=== PATIENT | male | born 1985 | race Hispanic/Latino ===

== ENCOUNTER 2016-11-19 06:50 | Emergency (ER) | payer SELFPAY ==
[2016-11-19 08:00] LABS: Anion Gap 19 mmol/L; Blood Urea Nitrogen 12 mg/dL (9-20); Calcium 9.3 mg/dL (8.4-10.2); Carbon Dioxide 26 mmol/L (22-30); Glucose 107 mg/dL (75-100); Potassium 3.7 mmol/L (3.6-5.0); Sodium 142 mmol/L (137-145)
[2016-11-19 08:02] LABS: Urine Drugs of Abuse Note Disclamer
[2016-11-19 08:03] LABS: Basophils % (Auto) 0.2 % (0.0-1.8); Hematocrit 42.1 % (35.5-45.6); Mean Corpuscular HGB Conc 33 % (32-34); Mean Corpuscular Hemoglobin 30 pg (28-32); Mean Corpuscular Volume 90 fl (84-94); Platelet Count 261 K/mm3 (140-440); Red Blood Count 4.68 M/mm3 (3.65-5.03); Red Cell Distribution Width 13.7 % (13.2-15.2); White Blood Count 16.3 K/mm3 (4.5-11.0)
[2016-11-19 08:30] LABS: Bilirubin,Urine NEG (Negative); Blood,Urine SM (Negative); Ketones,Urine NEG (Negative); Leukocyte Esterase,Urine NEG (Negative); Mucus,Urine FEW /HPF; Nitrite,Urine NEG (Negative); Urobilinogen,Urine < 2.0 mg/dL (<2.0)
--- NOTE | 2016-11-19 09:52 | Emergency Department Report ---
Entered by MACEY HARRISON, acting as scribe for ANH ALVARADO NP. Chief Complaint: Dyspnea/Respdistress Stated Complaint: JAMARI Time Seen by Provider: 11/19/16 09:37 - HPI History of Present Illness: Pt is a 31 y.o. male with a hx of persistent cough c/o a 15-18 hour hx of persistent SOB that started when he heard a sound like a gun being cocked while at [employer]. He does not report chest pain. Pt reports that he is a substance abuser, stating that he uses marijuana. - ROS Review of Systems: Positive for SOB Positive for chronic cough Negative for chest pain - Exam Vital Signs: Vital Signs 11/19/16 07:20 Temperature 99.3 F Pulse Rate 138 H Respiratory 20 Rate Blood Pressure 154/99 O2 Sat by Pulse 100 Oximetry Physical Exam: Constitutional: Well-developed, well-nourished. NAD. Pulmonary: Unable to auscultate secondary to rapid, pressured speech Neuro: A&Ox3 Psych: Flight of ideas. Anxious. Rapid, pressured speech MSE screening note: Focused history and physical exam performed. Due to findings the following was ordered: CXR ordered. ED Medical Decision Making - Lab Data Result diagrams: 11/19/16 07:29 11/19/16 07:29 ED Disposition for MSE Condition: Stable Referrals: PRIMARY CARE, [Primary Care Provider] - 3-5 Days This documentation as recorded by the scribe,MACEY HARRISON,accurately reflects the service I personally performed and the decisions made by me,ANH ALVARADO , SECURITY OFFICER.
--- NOTE | 2016-11-19 10:22 | XRay Report ---
CHEST 2 VIEWS INDICATION: Shortness of breath. COMPARISON: None similar at this institution. FINDINGS: PA and lateral chest radiographs demonstrate approximately 3 cm round infrahilar mass, possibly localizing the right middle lobe. Clear remainder lungs. Normal cardiomediastinal silhouette. Mild thoracic spine degenerative spurring. CONCLUSION: Right lung mass/possible neoplasm, as described. Please also correlate clinically and further with contrasted chest CT, as appropriate. Thank you for the opportunity to participate in this patient's care.
[2016-11-19] MEDS ORDERED: NACL 0.9% 1000 ML 2,000 ML IV ONE (11:11)
[2016-11-19] MEDS ORDERED: VALIUM IV ONE ×2 (11:11→11:47)
[2016-11-19] MEDS ORDERED: TYLENOL PO ONE (11:12)
--- NOTE | 2016-11-19 11:20 | Emergency Department Report ---
ED General Adult HPI - General Chief complaint: Dyspnea/Respdistress Stated complaint: JAMARI Time Seen by Provider: 11/19/16 09:37 Source: patient, family, EMS (ems notes not available at time of chart dictation), RN notes reviewed Mode of arrival: Ambulatory Limitations: No Limitations - History of Present Illness Initial comments: This is a 31-year-old male. He is previously unknown to me. He has a history of methamphetamine abuse, right lung mass. The patient is accompanied by his , Mrs. Bhavana Miller. She reports that the patient ingested methamphetamine last night. The patient presents to the ER with multiple complaints, including hallucinations, rectal discomfort, and anxiety. He is not homicidal or suicidal. He'll not further clarify the nature of his hallucinations. He does not have access to guns or firearms. He is not homicidal or suicidal. His feels comfortable to take care of him at home. The patient is currently methamphetamine intoxicated, and is unable to describe exacerbating or relieving factors. Severity scale (0 -10): 0 Improves with: none Worsens with: none Associated Symptoms: confusion, diaphoresis, loss of appetite, weakness. denies : chest pain - Related Data Allergies Allergy/AdvReac Type Severity Reaction Status Date / Time No Known Allergies Allergy Unverified 11/19/16 06:55 ED Review of Systems ROS: Stated complaint: JAMARI Other details as noted in HPI Constitutional: denies: fever Eyes: denies: eye discharge ENT: denies: hearing loss Respiratory: shortness of breath Cardiovascular: denies: chest pain Gastrointestinal: abdominal pain Genitourinary: denies: dysuria Musculoskeletal: arthralgia, myalgia Skin: denies: lesions Neurological: denies: weakness Psychiatric: anxiety, auditory hallucinations. denies: homicidal thoughts, suicidal thoughts ED Past Medical Hx - Past Medical History Previous Medical History?: Yes Hx Psychiatric Treatment: Yes (ADHD) - Surgical History Past Surgical History?: Yes Additional Surgical History: Right Lung biopsy - Social History Smoking Status: Current Every Day Smoker Substance Use Type: Alcohol, Marijuana, Non Opiate Pain ED Physical Exam - General Limitations: Other (methamphetamine intoxication) General appearance: alert, in no apparent distress - Head Head exam: Present: atraumatic, normocephalic - Eye Eye exam: Present: normal appearance, EOMI - ENT ENT exam: Present: normal exam, normal orophraynx, mucous membranes moist, normal external ear exam - Neck Neck exam: Present: normal inspection, full ROM - Respiratory Respiratory exam: Present: normal lung sounds bilaterally. Absent: respiratory distress, wheezes, rales, rhonchi, stridor, chest wall tenderness - Cardiovascular Cardiovascular Exam: Present: normal rhythm, tachycardia, normal heart sounds. Absent: systolic murmur, diastolic murmur, rubs, gallop - GI/Abdominal GI/Abdominal exam: Present: soft, normal bowel sounds. Absent: distended, tenderness, guarding, rebound, rigid, pulsatile mass - Rectal Rectal exam: Present: normal inspection (escorted by ALVARO wong), other ( patient declines rectal examination) - Extremities Exam Extremities exam: Present: normal inspection, full ROM, normal capillary refill. Absent: pedal edema, joint swelling, calf tenderness - Back Exam Back exam: Present: normal inspection - Neurological Exam Neurological exam: Present: alert, oriented X3, normal gait, other (Extraocular movements intact. Tongue midline. No facial droop. Facial sensation intact to light touch in the V1, V2, V3 distribution bilaterally. 5 and 5 strength in 4 extremities.. Sensation is intact to light touch in 4 extremities.). Absent : motor sensory deficit - Psychiatric Psychiatric exam: Present: anxious. Absent: homicidal ideation, suicidal ideation - Skin Skin exam: Present: warm, dry, intact, normal color. Absent: rash ED Course Vital Signs 11/19/16 11/19/16 11/19/16 07:20 11:05 11:38 Temperature 99.3 F 100.2 F H Pulse Rate 138 H 133 H Respiratory 20 20 Rate Blood Pressure 154/99 Blood Pressure 119/98 [Right] O2 Sat by Pulse 100 100 Oximetry 11/19/16 11/19/16 12:03 13:56 Temperature 99 F Pulse Rate 123 H 98 H Respiratory 18 18 Rate Blood Pressure Blood Pressure 126/86 144/88 [Right] O2 Sat by Pulse 100 100 Oximetry - Reevaluation(s) Reevaluation #1: 11/19/16 11:30 differential diagnosis: Methamphetamine toxicity, chronic lung mass, tachycardia, mood disorder Assessment and plan: 31-year-old male with clinical sympathomimetic toxicity. He is tachycardic, however he is pleasant and cooperative, although he is very wandering. He is not homicidal or suicidal, he is somewhat disorganized, but his feels comfortable to care for him. No indication for 1013 as of yet. A nonspecific lesion noted in x-ray the chest, patient did report a history of lesion in the chest, for which he received a biopsy. CT scan of the chest is ordered. IV fluids and benzodiazepines ordered. Rectal temperature is 100.2 degrees, the neck is supple, therefore, I don't think clinical presentation is consistent with meningitis. 11/19/16 11:44 Reevaluation #2: 11/19/16 14:38. Tachycardia resolved. Patient ambulating with steady gait. Patient seen and evaluated by the crisis counselor, Romi Mendoza, who agrees the patient does not meet 1013 criteria, and has given the patient outpatient resources for methamphetamine detox. Patient is instructed to discontinue methamphetamine consumption, and he is counseled to follow up with outpatient primary care doctor or resistor tester for his pulmonary mass. The patient is accompanied by his , who is sober, walks with a steady gait, and is feeling comfortable to care for the patient. Patient now much more lucid, cogent, sober. He did request a prescription for tramadol, and I instructed the patient that he would not be receiving any prescription for controlled medications or substances at this time. 11/19/16 19:21 ED Medical Decision Making - Lab Data Result diagrams: 11/19/16 07:29 11/19/16 07:29 Vital Signs 11/19/16 11/19/16 07:20 11:05 Temperature 99.3 F Pulse Rate 138 H 133 H Respiratory 20 20 Rate Blood Pressure 154/99 Blood Pressure 119/98 [Right] O2 Sat by Pulse 100 100 Oximetry Labs 11/19/16 11/19/16 11/19/16 07:29 07:29 07:56 WBC 16.3 H RBC 4.68 Hgb 14.0 Hct 42.1 MCV 90 MCH 30 MCHC 33 RDW 13.7 Plt Count 261 Lymph % (Auto) 9.5 L [place] % (Auto) 9.4 H Eos % (Auto) 0.0 Baso % (Auto) 0.2 Lymph # 1.5 [place] # 1.5 H Eos # 0.0 Baso # 0.0 Seg Neutrophils % 80.9 H Seg Neutrophils # 13.2 H Sodium 142 Potassium 3.7 Chloride 101.0 Carbon Dioxide 26 Anion Gap 19 BUN 12 Creatinine 0.8 Estimated GFR > 60 BUN/Creatinine Ratio 15.00 Glucose 107 H Calcium 9.3 Urine Color Yellow Urine Turbidity Clear Urine pH 6.0 Ur Specific [place] 1.020 Urine Protein 30 mg/dl Urine Glucose (UA) Neg Urine Ketones Neg Urine Blood Sm Urine Nitrite Neg Urine Bilirubin Neg Urine Urobilinogen < 2.0 Ur Leukocyte Esterase Neg Urine WBC (Auto) 1.0 Urine RBC (Auto) 4.0 Hyaline Casts 1 Urine Mucus Few Urine Opiates Screen Urine Methadone Screen Ur Barbiturates Screen Ur Phencyclidine Scrn Ur Amphetamines Screen U Benzodiazepines Scrn Urine Cocaine Screen U Marijuana (THC) Screen Drugs of Abuse Note 11/19/16 07:56 WBC RBC Hgb Hct MCV MCH MCHC RDW Plt Count Lymph % (Auto) [place] % (Auto) Eos % (Auto) Baso % (Auto) Lymph # [place] # Eos # Baso # Seg Neutrophils % Seg Neutrophils # Sodium Potassium Chloride Carbon Dioxide Anion Gap BUN Creatinine Estimated GFR BUN/Creatinine Ratio Glucose Calcium Urine Color Urine Turbidity Urine pH Ur Specific [place] Urine Protein Urine Glucose (UA) Urine Ketones Urine Blood Urine Nitrite Urine Bilirubin Urine Urobilinogen Ur Leukocyte Esterase Urine WBC (Auto) Urine RBC (Auto) Hyaline Casts Urine Mucus Urine Opiates Screen Presumptive negative Urine Methadone Screen Presumptive negative Ur Barbiturates Screen Presumptive negative Ur Phencyclidine Scrn Presumptive negative Ur Amphetamines Screen Presumptive positive U Benzodiazepines Scrn Presumptive negative Urine Cocaine Screen Presumptive negative U Marijuana (THC) Screen Presumptive positive Drugs of Abuse Note Disclamer - EKG Data -: EKG Interpreted by Ms Rate: tachycardia - EKG Data 11/19/16 11:31 Sinus tachycardia, 127 beats per minute, normal intervals, normal axis, not morphologically consistent with STEMI - Radiology Data Radiology results: report reviewed, image reviewed Two-view x-ray of the chest demonstrates a right lung mass and possible neoplasm. Otherwise, no acute disease CAT scan of the chest demonstrates no pulmonary embolus. Neoplastic mass noted in the right hemithorax. Critical care attestation.: If time is entered above; I have spent that time in minutes in the direct care of this critically ill patient, excluding procedure time. ED Disposition Clinical Impression: Methamphetamine abuse, Lung mass Disposition: DC- TO HOME OR SELFCARE Is pt being admited?: No Does the pt Need Aspirin: No Condition: Stable Instructions: Needle Biopsy of the Lung (ED), Methamphetamine Abuse (ED), Pulmonary Nodules (ED) Additional Instructions: Discontinue consumption of methamphetamine. It is not good for your health. Follow-up with the outpatient resources that were given to you for methamphetamine detox. CT scan of the chest demonstrated a right-sided lung mass, very concerning for cancer/tumor/malignancy. Follow up as soon as possible with any the listed physicians to initiate outpatient care, and for definitive diagnosis. Not following up in a timely fashion may result in an undiagnosed tumor/cancer/malignancy, which in turn can cause , disability, paralysis, loss of quality of life. Return to the ER right away with chest pain, shortness of breath, fevers, chills , confusion, homicidality, suicidality Referrals: PRIMARY CAREMD [Primary Care Provider] - 3-5 Days JOSE MOTT MD [Staff Physician] - 3-5 Days SALAZAR SANABRIA DO [Staff Physician] - 3-5 Days OLLIE STEVENSON MD [Referring] - 3-5 Days TOMMY SHEEHAN MD [Staff Physician] - 3-5 Days [facility] [Outside] - 3-5 Days
[2016-11-19] MEDS ORDERED: NACL ONE (11:34)
[2016-11-19 13:57] VITALS: BP 144/88
--- NOTE | 2016-11-19 14:27 | Cat Scan Report ---
CTA CHEST INDICATION: Shortness of breath, tachycardia. Right lung mass. COMPARISON: CXR from earlier today. FINDINGS: Chest CTA performed following intravenous administration of 100 cc of Omnipaque 350. Rotational MIP's also obtained. Normal heart size. No effusions. No aortic aneurysm, dissection or suspicious pulmonary arterial filling defects. No size significant adenopathy. Normal airway. Unremarkable thyroid. Approximately 2.8 cm solid round mass in the right mid lobe corresponds to CXR appearance. Subtle bibasilar airspace opacities also noted, axial series 3, images 88-128. Nonspecific distal esophageal wall prominence/thickening, not excluded for gastroesophageal reflux and/or hiatal hernia, amongst others. Images through included upper abdomen reveal no significant abnormality. Multilevel mid to lower thoracic spine degenerative changes, including spurring and endplate irregularities/Schmorl's nodes, somewhat advanced for a patient of this age. CONCLUSION: 1. 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 2. No CT evidence of pulmonary embolism with few other incidental findings, as above. Thank you for the opportunity to participate in this patient's care.
== END 2016-11-19 14:59 | disposition home or self-care (01) ==
LOC: ED 06:50
DX: R91.8 Other nonspecific abnormal finding of lung field (principal); F15.10 Other stimulant abuse, uncomplicated; F17.210 Nicotine dependence, cigarettes, uncomplicated; F12.10 Cannabis abuse, uncomplicated
CPT/HCPCS: 36415; 71020; 71275; 80048; 80307; 81001; 82550; 85025; 93005; 93010; 96374; 99285; G0480; J3360; J7030; Q9967; 80320

== ENCOUNTER 2016-11-22 21:42 | Emergency (ER) | payer SELFPAY ==
[2016-11-22 22:21] VITALS: BP 133/91
[2016-11-22 23:18] LABS: Basophils % (Auto) 0.6 % (0.0-1.8); Eosinophils % (Auto) 2.2 % (0.0-4.3); Hematocrit 43.3 % (35.5-45.6); Hemoglobin 14.7 gm/dl (11.8-15.2); Mean Corpuscular HGB Conc 34 % (32-34); Mean Corpuscular Hemoglobin 31 pg (28-32); Mean Corpuscular Volume 90 fl (84-94); Platelet Count 275 K/mm3 (140-440); Red Cell Distribution Width 13.4 % (13.2-15.2); White Blood Count 7.5 K/mm3 (4.5-11.0)
[2016-11-22 23:35] LABS: Anion Gap 18 mmol/L; BUN/Creatinine Ratio 18.88; Blood Urea Nitrogen 17 mg/dL (9-20); Calcium 9.2 mg/dL (8.4-10.2); Carbon Dioxide 25 mmol/L (22-30); Chloride 100.5 mmol/L (98-107); Glucose 91 mg/dL (75-100); Potassium 3.5 mmol/L (3.6-5.0); Sodium 140 mmol/L (137-145)
[2016-11-23 00:03] LABS: Urine Drugs of Abuse Note Disclamer
[2016-11-23 00:23] LABS: Bilirubin,Urine NEG (Negative); Blood,Urine NEG (Negative); Ketones,Urine TR mg/dL (Negative); Leukocyte Esterase,Urine NEG (Negative); Mucus,Urine 3+ /HPF; Nitrite,Urine NEG (Negative); Urobilinogen,Urine < 2.0 mg/dL (<2.0)
--- NOTE | 2016-11-23 18:23 | ED Elopement Review ---
ED Pt Elopement review - Results review Lab results: Laboratory Tests 11/22/16 11/22/16 11/22/16 22:51 22:51 22:51 WBC 7.5 RBC 4.80 Hgb 14.7 Hct 43.3 MCV 90 MCH 31 MCHC 34 RDW 13.4 Plt Count 275 Lymph % (Auto) 25.9 [place] % (Auto) 11.0 H Eos % (Auto) 2.2 Baso % (Auto) 0.6 Lymph # 2.0 [place] # 0.8 Eos # 0.2 Baso # 0.0 Seg Neutrophils % 60.3 Seg Neutrophils # 4.5 Sodium 140 Potassium 3.5 L Chloride 100.5 Carbon Dioxide 25 Anion Gap 18 BUN 17 Creatinine 0.9 Estimated GFR > 60 BUN/Creatinine Ratio 18.88 Glucose 91 Calcium 9.2 Urine Color Urine Turbidity Urine pH Ur Specific [place] Urine Protein Urine Glucose (UA) Urine Ketones Urine Blood Urine Nitrite Urine Bilirubin Urine Urobilinogen Ur Leukocyte Esterase Urine WBC (Auto) Urine RBC (Auto) U Epithel Cells (Auto) Calcium Oxalate Crystal Urine Mucus Urine Opiates Screen Urine Methadone Screen Ur Barbiturates Screen Ur Phencyclidine Scrn Ur Amphetamines Screen U Benzodiazepines Scrn Urine Cocaine Screen U Marijuana (THC) Screen Drugs of Abuse Note Plasma/Serum Alcohol < 0.01 11/22/16 11/22/16 23:30 23:30 WBC RBC Hgb Hct MCV MCH MCHC RDW Plt Count Lymph % (Auto) [place] % (Auto) Eos % (Auto) Baso % (Auto) Lymph # [place] # Eos # Baso # Seg Neutrophils % Seg Neutrophils # Sodium Potassium Chloride Carbon Dioxide Anion Gap BUN Creatinine Estimated GFR BUN/Creatinine Ratio Glucose Calcium Urine Color [place] Urine Turbidity Clear Urine pH 5.0 Ur Specific [place] 1.033 H Urine Protein 30 mg/dl Urine Glucose (UA) Neg Urine Ketones Tr Urine Blood Neg Urine Nitrite Neg Urine Bilirubin Neg Urine Urobilinogen < 2.0 Ur Leukocyte Esterase Neg Urine WBC (Auto) 2.0 Urine RBC (Auto) 7.0 U Epithel Cells (Auto) < 1.0 Calcium Oxalate Crystal 1+ Urine Mucus 3+ Urine Opiates Screen Presumptive negative Urine Methadone Screen Presumptive negative Ur Barbiturates Screen Presumptive negative Ur Phencyclidine Scrn Presumptive negative Ur Amphetamines Screen Presumptive positive U Benzodiazepines Scrn Presumptive positive Urine Cocaine Screen Presumptive negative U Marijuana (THC) Screen Presumptive positive Drugs of Abuse Note Disclamer Plasma/Serum Alcohol - Call Back decision Pt Call Back Decision: Pt to F/U with PMD
== END 2016-11-23 00:45 | disposition left against medical advice (07) ==
LOC: ED 21:42
DX: R05 Cough (principal); Z53.21 Procedure and treatment not carried out due to patient leaving prior to being seen by health care provider
CPT/HCPCS: 36415; 80048; 80307; 81001; 85025; 87116; 87430; G0480; 80320

== ENCOUNTER 2016-12-02 20:57 | Emergency (ER) | payer OTHER ==
--- NOTE | 2016-12-02 21:52 | Emergency Department Report ---
HPI - General Chief Complaint: Psych Time Seen by Provider: 12/02/16 21:40 - HPI HPI: 31-year-old male brought to ED by mother, grandmother stating and is acting strange. Patient has a history of paranoid schizophrenia, methamphetamine abuse , things that he is being framed for murder, and is feeling suicidal. ED Past Medical Hx - Past Medical History Previous Medical History?: Yes Hx Psychiatric Treatment: Yes (ADHD) Additional medical history: nodule on lung - Surgical History Hx Appendectomy: Yes Additional Surgical History: Right Lung biopsy - Family History Family history: hypertension - Social History Smoking Status: Current Every Day Smoker Substance Use Type: Alcohol, Cocaine, Marijuana, Methamphetamines - Medications Home Medications: Home Medications Medication Instructions Recorded Confirmed Last Taken Type No Known Home Medications [No 12/02/16 12/02/16 Unknown History Reported Home Medications] ED Review of Systems ROS: Stated complaint: MED CLEARANCE Other details as noted in HPI Comment: All other systems reviewed and negative Constitutional: no symptoms reported ENT: as per HPI Psychiatric: homicidal thoughts, suicidal thoughts Physical Exam - Physical Exam Vital Signs: Vital Signs 12/02/16 21:13 Pulse Rate 151 H Respiratory 20 Rate Blood Pressure 141/96 O2 Sat by Pulse 99 Oximetry Physical Exam: Gen. alert and oriented 3 in no distress Head atraumatic normocephalic Eyes PERR LA EOMI Chest regular rate and rhythm normal S1-S2 lungs clear bilaterally Abdomen soft nondistended Back no point tenderness paravertebral tenderness Neuro no focal deficit. Psych: Anxious, hallucinations, delusions, suicidal. ED Course Vital Signs 12/02/16 21:13 Pulse Rate 151 H Respiratory 20 Rate Blood Pressure 141/96 O2 Sat by Pulse 99 Oximetry - Reevaluation(s) Reevaluation #1: 12/02/16 21:[address] on a 1013 awaiting psychiatric consultation. ED Medical Decision Making - Lab Data Result diagrams: 12/02/16 21:35 12/02/16 21:35 Critical care attestation.: If time is entered above; I have spent that time in minutes in the direct care of this critically ill patient, excluding procedure time. ED Disposition Clinical Impression: Mood disorder Disposition: DC-01 TO HOME OR SELFCARE Is pt being admited?: No Does the pt Need Aspirin: No Condition: Stable Instructions: Mood Disorders (ED), Methamphetamine Abuse (ED) Additional Instructions: Avoid consumption of methamphetamines. They are not healthy for you. Follow up with a primary care doctor or psychiatrist within the next 2 weeks. Return to the ER right away with fevers, chills, chest pain, shortness of breath, intractable nausea or vomiting, confusion, inability to tolerate liquid feeds. Referrals: [facility] [Outside] - 3-5 Days PRIMARY CARE, [Primary Care Provider] - 3-5 Days LETY WHALEN MD [Staff Physician] - 3-5 Days AMALIA HUYNH MD [Staff Physician] - 3-5 Days
[2016-12-02 21:57] LABS: Basophils % (Auto) 0.2 % (0.0-1.8); Eosinophils % (Auto) 0.3 % (0.0-4.3); Hematocrit 44.8 % (35.5-45.6); Hemoglobin 15.1 gm/dl (11.8-15.2); Mean Corpuscular HGB Conc 34 % (32-34); Mean Corpuscular Hemoglobin 30 pg (28-32); Mean Corpuscular Volume 90 fl (84-94); Platelet Count 294 K/mm3 (140-440); Red Blood Count 4.98 M/mm3 (3.65-5.03); Red Cell Distribution Width 14.2 % (13.2-15.2); White Blood Count 11.3 K/mm3 (4.5-11.0)
[2016-12-02 22:03] LABS: Urine Drugs of Abuse Note Disclamer
[2016-12-02 22:11] LABS: Bilirubin,Urine NEG (Negative); Blood,Urine SM (Negative); Ketones,Urine NEG (Negative); Leukocyte Esterase,Urine NEG (Negative); Mucus,Urine FEW /HPF; Nitrite,Urine NEG (Negative); Protein,Urine <15 mg/dL mg/dL (Negative); Urobilinogen,Urine < 2.0 mg/dL (<2.0)
[2016-12-02 22:22] LABS: Anion Gap 21 mmol/L; BUN/Creatinine Ratio 15.55; Blood Urea Nitrogen 14 mg/dL (9-20); Calcium 9.7 mg/dL (8.4-10.2); Carbon Dioxide 28 mmol/L (22-30); Chloride 97.2 mmol/L (98-107); Glucose 124 mg/dL (75-100); Potassium 4.3 mmol/L (3.6-5.0); Sodium 142 mmol/L (137-145)
[2016-12-02] MEDS ORDERED: NACL 0.9% 1000 ML 1,000 ML IV ONE (23:03)
[2016-12-03] MEDS ORDERED: GEODON IM ONE (00:40)
[2016-12-03] MEDS ORDERED: WATER FOR INJ (PF) 10 ML ONE (01:06)
--- NOTE | 2016-12-03 15:54 | Consultation ---
History of Present Illness - Reason for Consult Consult date: 12/03/16 Reason for consult: Psychiatry Follow-up Requesting physician: CHAVA HERNÁNDEZ - Chief Complaint Chief complaint: "It's the drug I use" - History of Present Psychiatric Illness 31-year-old male brought to ED by mother and grandmother stating and is acting strange. Today patient is calm and cooperative during assessment. He stated that he "gets high" on amphetamines and marijuana frequently. He stated smoking both amphetamines and marijuana prior to coming to [facility]. He stated that he felt paranoid and suicidal on admission. He stated that he experience "weird stuff" when he get high on recreational drugs. He denies a psy hx when asked. He is adamant that he isn't suicidal now and would like to be discharged. He denies SI /HI's, AVH's, and depression. He denies excessive alcohol consumption (etoh). Patient stated that he want help for his recreation drug use. Medications and Allergies Allergies Allergy/AdvReac Type Severity Reaction Status Date / Time No Known Allergies Allergy Unverified 11/19/16 06:55 Home Medications Medication Instructions Recorded Confirmed Last Taken Type No Known Home Medications [No 12/02/16 12/02/16 Unknown History Reported Home Medications] Past psychiatric history - Past Medical History Past Medical History: other (Nodule on right lung) Past Surgical History: Other (Right luing biopsy) - past Psychiatric treatment and history Psych: Psychosis psychiatric treatment history: Denies a psy hx. Denies a fam psy hx. - Social History Social history: other (homeless) Mental Status Exam - Vital signs Last Vital Signs Temp 98.9 F 12/03/16 10:00 Pulse 89 12/03/16 10:00 Resp 18 12/03/16 10:00 BP 126/84 12/03/16 10:00 Pulse Ox 100 12/03/16 10:00 - Exam Narrative exam: ROS: (-) depression MSE: Appearance: calm, cooperative Behavior: regular eye contact Speech: regular rate and tone Mood: "okay" Affect: congruent to mood Thought Process: circumstantial Thought Content: denies SI/HI's and AVH's Motor Activity: ambulatory Cognition: A/Ox 3 Insight: variable Judgment: variable Results Result Diagrams: 12/02/16 21:35 12/02/16 21:35 Abnormal lab results 12/02/16 12/02/16 Range/Units 21:35 21:35 WBC 11.3 H (4.5-11.0) K/mm3 Seg Neutrophils % 79.4 H (40.0-70.0) % Seg Neutrophils # 9.0 H (1.8-7.7) K/mm3 Chloride 97.2 L (98-107) mmol/L Glucose 124 H (75-100) mg/dL All other labs normal. 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 Substance Use DO (amphetamine and cocaine). Today patient is calm and cooperative during assessment. DDx: R/O Bipolar, MDD Recommendation/Plan: Evaluate 1013 and gather collateral information in 24 hours to determine proper dispo. Discussed the importance to abstain from recreational drug use.
--- NOTE | 2016-12-04 08:55 | Progress Note ---
Subjective - Reason for Consult Reason for consult: psych consult - Chief Complaint Chief complaint: 31 year old WM who presented to the ER with chest pain and paranoia secondary to drug use. Currently patient is denying any withdrawal symptoms. He also denies any paranoia. No SI/HI/AH/VH. His mood is fine. He states that he is better secondary to the drugs being out of his system and admits that he gets psychoptic symptoms after using drugs. Currently he feels fine adn is willing to continue treatment on an outpatient basis. 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 Substance Use DO (amphetamine and cocaine). Today patient is calm and cooperative during assessment. Recommendation/Plan: Rescind 1013 given patient seems to be back to his baseline. He is in no acute risk of harm to self or others at this time. He notes that he has friends that can pick him up when discharged. No current withdrawals. We discussed the importance of abstaining from illicit drug use. Patient is willing to go to outpatient drug treatment.
--- NOTE | 2016-12-04 17:41 | Event Note ---
Date: 12/04/16 The patient is seen and examined. He is neither homicidal nor suicidal. The patient is alert and oriented 3. He has a GCS of 15, with an NIH score of 0, and is clinically sober at this time, he is pleasant, calm and cooperative. His 1013 has been discontinued by psychiatry, and he has no complaints at this time. He will be discharged at this time. Vital Signs 12/02/16 12/02/16 12/02/16 21:13 22:12 22:17 Temperature 99.4 F Pulse Rate 151 H 120 H Respiratory 20 22 22 Rate Blood Pressure 141/96 Blood Pressure 161/108 [Left] O2 Sat by Pulse 99 97 97 Oximetry 12/03/16 12/03/16 12/03/16 02:34 10:00 22:03 Temperature 98.9 F 98.6 F Pulse Rate 110 H 89 86 Respiratory 20 18 16 Rate Blood Pressure Blood Pressure 116/82 126/84 132/96 [Left] O2 Sat by Pulse 99 100 99 Oximetry 12/04/16 07:56 Temperature 98.1 F Pulse Rate 103 H Respiratory 16 Rate Blood Pressure Blood Pressure 144/101 [Left] O2 Sat by Pulse Oximetry Lab Results 12/02/16 12/02/16 12/02/16 Range/Units 21:35 21:35 21:35 WBC 11.3 H (4.5-11.0) K/mm3 RBC 4.98 (3.65-5.03) M/mm3 Hgb 15.1 (11.8-15.2) gm/dl Hct 44.8 (35.5-45.6) % MCV 90 (84-94) fl MCH 30 (28-32) pg MCHC 34 (32-34) % RDW 14.2 (13.2-15.2) % Plt Count 294 (140-440) K/mm3 Lymph % (Auto) 14.4 (13.4-35.0) % [place] % (Auto) 5.7 (0.0-7.3) % Eos % (Auto) 0.3 (0.0-4.3) % Baso % (Auto) 0.2 (0.0-1.8) % Lymph # 1.6 (1.2-5.4) K/mm3 [place] # 0.6 (0.0-0.8) K/mm3 Eos # 0.0 (0.0-0.4) K/mm3 Baso # 0.0 (0.0-0.1) K/mm3 Seg Neutrophils % 79.4 H (40.0-70.0) % Seg Neutrophils # 9.0 H (1.8-7.7) K/mm3 Sodium 142 (137-145) mmol/L Potassium 4.3 (3.6-5.0) mmol/L Chloride 97.2 L (98-107) mmol/L Carbon Dioxide 28 (22-30) mmol/L Anion Gap 21 mmol/L BUN 14 (9-20) mg/dL Creatinine 0.9 (0.8-1.5) mg/dL Estimated GFR > 60 ml/min BUN/Creatinine Ratio 15.55 % Glucose 124 H (75-100) mg/dL Lactic Acid (0.7-2.0) mmol/L Calcium 9.7 (8.4-10.2) mg/dL Urine Color (Yellow) Urine Turbidity (Clear) Urine pH (5.0-7.0) Ur Specific [place] (1.003-1.030) Urine Protein (Negative) mg/dL Urine Glucose (UA) (Negative) mg/dL Urine Ketones (Negative) mg/dL Urine Blood (Negative) Urine Nitrite (Negative) Urine Bilirubin (Negative) Urine Urobilinogen (<2.0) mg/dL Ur Leukocyte Esterase (Negative) Urine WBC (Auto) (0.0-6.0) /HPF Urine RBC (Auto) (0.0-6.0) /HPF U Epithel Cells (Auto) (0-13.0) /HPF Urine Mucus /HPF Urine Opiates Screen Urine Methadone Screen Ur Barbiturates Screen Ur Phencyclidine Scrn Ur Amphetamines Screen U Benzodiazepines Scrn Urine Cocaine Screen U Marijuana (THC) Screen Drugs of Abuse Note Plasma/Serum Alcohol 0.01 (0-0.07) gm% 12/02/16 12/02/16 12/03/16 Range/Units 21:57 21:57 10:43 WBC (4.5-11.0) K/mm3 RBC (3.65-5.03) M/mm3 Hgb (11.8-15.2) gm/dl Hct (35.5-45.6) % MCV (84-94) fl MCH (28-32) pg MCHC (32-34) % RDW (13.2-15.2) % Plt Count (140-440) K/mm3 Lymph % (Auto) (13.4-35.0) % [place] % (Auto) (0.0-7.3) % Eos % (Auto) (0.0-4.3) % Baso % (Auto) (0.0-1.8) % Lymph # (1.2-5.4) K/mm3 [place] # (0.0-0.8) K/mm3 Eos # (0.0-0.4) K/mm3 Baso # (0.0-0.1) K/mm3 Seg Neutrophils % (40.0-70.0) % Seg Neutrophils # (1.8-7.7) K/mm3 Sodium (137-145) mmol/L Potassium (3.6-5.0) mmol/L Chloride (98-107) mmol/L Carbon Dioxide (22-30) mmol/L Anion Gap mmol/L BUN (9-20) mg/dL Creatinine (0.8-1.5) mg/dL Estimated GFR ml/min BUN/Creatinine Ratio % Glucose (75-100) mg/dL Lactic Acid 1.60 (0.7-2.0) mmol/L Calcium (8.4-10.2) mg/dL Urine Color Yellow (Yellow) Urine Turbidity Clear (Clear) Urine pH 6.0 (5.0-7.0) Ur Specific [place] 1.020 (1.003-1.030) Urine Protein <15 mg/dl (Negative) mg/dL Urine Glucose (UA) Neg (Negative) mg/dL Urine Ketones Neg (Negative) mg/dL Urine Blood Sm (Negative) Urine Nitrite Neg (Negative) Urine Bilirubin Neg (Negative) Urine Urobilinogen < 2.0 (<2.0) mg/dL Ur Leukocyte Esterase Neg (Negative) Urine WBC (Auto) 1.0 (0.0-6.0) /HPF Urine RBC (Auto) 4.0 (0.0-6.0) /HPF U Epithel Cells (Auto) < 1.0 (0-13.0) /HPF Urine Mucus Few /HPF Urine Opiates Screen Presumptive negative Urine Methadone Screen Presumptive negative Ur Barbiturates Screen Presumptive negative Ur Phencyclidine Scrn Presumptive negative Ur Amphetamines Screen Presumptive positive U Benzodiazepines Scrn Presumptive negative Urine Cocaine Screen Presumptive negative U Marijuana (THC) Screen Presumptive positive Drugs of Abuse Note Disclamer Plasma/Serum Alcohol (0-0.07) gm%
[2016-12-04 18:00] VITALS: BP 119/80
== END 2016-12-04 18:04 | disposition home or self-care (01) ==
LOC: EEVIPCON 20:57 → ED 20:57
DX: F20.9 Schizophrenia, unspecified (principal); F15.10 Other stimulant abuse, uncomplicated; F17.210 Nicotine dependence, cigarettes, uncomplicated; F12.10 Cannabis abuse, uncomplicated; F14.10 Cocaine abuse, uncomplicated
CPT/HCPCS: 36415; 80048; 80307; 81001; 82140; 85025; 96360; 96361; 96372; 99285; G0480; J3486; J7030; 80320

== ENCOUNTER 2017-01-31 02:58 | Emergency (ER) | payer SELFPAY ==
[2017-01-31 03:14] VITALS: BP 163/79
[2017-01-31 03:53] LABS: Basophils % (Auto) 0.2 % (0.0-1.8); Eosinophils % (Auto) 0.2 % (0.0-4.3); Hemoglobin 15.3 gm/dl (11.8-15.2); Mean Corpuscular HGB Conc 35 % (32-34); Mean Corpuscular Hemoglobin 31 pg (28-32); Mean Corpuscular Volume 90 fl (84-94); Platelet Count 263 K/mm3 (140-440); Red Blood Count 4.91 M/mm3 (3.65-5.03); Red Cell Distribution Width 13.2 % (13.2-15.2); White Blood Count 9.3 K/mm3 (4.5-11.0)
[2017-01-31 04:02] LABS: Anion Gap 19 mmol/L; BUN/Creatinine Ratio 10; Blood Urea Nitrogen 10 mg/dL (9-20); Calcium 9.7 mg/dL (8.4-10.2); Carbon Dioxide 28 mmol/L (22-30); Glucose 119 mg/dL (75-100); Potassium 4.3 mmol/L (3.6-5.0); Sodium 145 mmol/L (137-145)
[2017-01-31 04:12] LABS: Urine Drugs of Abuse Note Disclamer
[2017-01-31 04:26] LABS: Bilirubin,Urine NEG (Negative); Blood,Urine SM (Negative); Ketones,Urine NEG (Negative); Leukocyte Esterase,Urine NEG (Negative); Mucus,Urine FEW /HPF; Nitrite,Urine NEG (Negative); Protein,Urine <15 mg/dL mg/dL (Negative); Urobilinogen,Urine < 2.0 mg/dL (<2.0); WBC,Urine < 1.0 /HPF (0.0-6.0)
[2017-01-31] MEDS ORDERED: TYLENOL PO ONE (06:01)
[2017-01-31] MEDS ORDERED: TYLENOL ONE (06:05)
== END 2017-01-31 21:00 | disposition left against medical advice (07) ==
LOC: ED 02:58
DX: R51 Headache (principal); Z53.21 Procedure and treatment not carried out due to patient leaving prior to being seen by health care provider
CPT/HCPCS: 36415; 80048; 80307; 81001; 85025; 93005; 93010; G0480; 80320

== ENCOUNTER 2017-02-07 04:43 | Emergency (ER) | payer SELFPAY ==
[2017-02-07 04:57] VITALS: BP 142/95
[2017-02-07 05:28] LABS: Basophils % (Auto) 0.2 % (0.0-1.8); Hematocrit 44.9 % (35.5-45.6); Hemoglobin 15.5 gm/dl (11.8-15.2); Mean Corpuscular HGB Conc 35 % (32-34); Mean Corpuscular Hemoglobin 31 pg (28-32); Mean Corpuscular Volume 90 fl (84-94); Platelet Count 255 K/mm3 (140-440); Red Blood Count 5.02 M/mm3 (3.65-5.03); Red Cell Distribution Width 13.1 % (13.2-15.2); White Blood Count 15.5 K/mm3 (4.5-11.0)
[2017-02-07 05:43] LABS: Alanine Aminotransferase 20 units/L (7-56); Albumin 5.1 g/dL (3.9-5); Albumin/Globulin Ratio 1.8 %; Alkaline Phosphatase 66 units/L (35-129); Anion Gap 21 mmol/L; BUN/Creatinine Ratio 20; Blood Urea Nitrogen 18 mg/dL (9-20); Calcium 9.7 mg/dL (8.4-10.2); Carbon Dioxide 24 mmol/L (22-30); Chloride 97.7 mmol/L (98-107); Glucose 106 mg/dL (75-100); Lipase 18 units/L (13-60); Potassium 3.8 mmol/L (3.6-5.0); Sodium 139 mmol/L (137-145)
[2017-02-07 07:07] LABS: Urine Drugs of Abuse Note Disclamer
[2017-02-07 07:17] LABS: Bilirubin,Urine NEG (Negative); Blood,Urine SM (Negative); Ketones,Urine TR mg/dL (Negative); Leukocyte Esterase,Urine NEG (Negative); Mucus,Urine FEW /HPF; Nitrite,Urine NEG (Negative); Protein,Urine <15 mg/dL mg/dL (Negative); Urobilinogen,Urine < 2.0 mg/dL (<2.0)
== END 2017-02-07 11:24 | disposition left against medical advice (07) ==
LOC: ED 04:43
DX: R10.9 Unspecified abdominal pain (principal); Z53.21 Procedure and treatment not carried out due to patient leaving prior to being seen by health care provider
CPT/HCPCS: 36415; 80053; 80307; 81001; 83690; 85025; G0480; 80320

== ENCOUNTER 2017-03-01 18:30 | Emergency (ER) | payer SELFPAY ==
--- NOTE | 2017-03-01 19:46 | Emergency Department Report ---
- General Chief Complaint: Upper Respiratory Infection Stated Complaint: COUGHING Time Seen by Provider: 03/01/17 19:05 Source: patient Mode of arrival: Ambulatory Limitations: No Limitations - History of Present Illness Initial Comments: Patient with H/O smoking and lung nodule presents to ED with nasal congestion, sore throat and painful swallowing, productive cough, wheezing and subjective fevers x 1 week; denies ear pain, SOB, CP, abdominal pain and N/V/D MD Complaint: fever, cough, sore throat, nasal congestion Onset/Timin -: week(s) Severity: mild Quality: sharp Consistency: intermittent Worsens With: other (swallowing) Associated Symptoms: fever, chills, rhinorrhea, nasal congestion, sore throat, cough. denies: myalgias, headache, chest pain, shortness of breath, abdominal pain, nausea, vomiting, diarrhea, rash, confusion, right sweats, weight loss, ear pain - Related Data Previous Rx's Medication Instructions Recorded Last Taken Type ALBUTEROL Inhaler [ProAir HFA 2 puff IH QID PRN #1 inhalation 03/01/17 Unknown Rx Inhaler] Naproxen 500 mg PO BID PRN #20 tablet 03/01/17 Unknown Rx Prednisone 50 mg PO QDAY #5 tablet 03/01/17 Unknown Rx Allergies Allergy/AdvReac Type Severity Reaction Status Date / Time No Known Allergies Allergy Unverified 11/19/16 06:55 ED Review of Systems ROS: Stated complaint: COUGHING Other details as noted in HPI Constitutional: chills, fever. denies: weakness Eyes: denies: eye discharge ENT: throat pain, congestion. denies: ear pain, hearing loss Respiratory: cough, wheezing. denies: shortness of breath Cardiovascular: denies: chest pain, palpitations Gastrointestinal: denies: abdominal pain, nausea, vomiting, diarrhea Musculoskeletal: denies: arthralgia, myalgia Skin: denies: rash Neurological: denies: headache, weakness ED Past Medical Hx - Past Medical History Previous Medical History?: Yes Hx Psychiatric Treatment: Yes (ADHD) Additional medical history: nodule on lung - Surgical History Hx Appendectomy: Yes Additional Surgical History: Right Lung biopsy - Social History Smoking Status: Current Every Day Smoker Substance Use Type: Alcohol, Marijuana, Methamphetamines - Medications Home Medications: Home Medications Medication Instructions Recorded Confirmed Last Taken Type ALBUTEROL Inhaler [ProAir HFA 2 puff IH QID PRN #1 inhalation 03/01/17 Unknown Rx Inhaler] Naproxen 500 mg PO BID PRN #20 tablet 03/01/17 Unknown Rx Prednisone 50 mg PO QDAY #5 tablet 03/01/17 Unknown Rx ED Physical Exam - General Limitations: No Limitations General appearance: alert, in no apparent distress - Head Head exam: Present: atraumatic, normocephalic, normal inspection - Eye Eye exam: Present: normal appearance, PERRL, EOMI Pupils: Present: normal accommodation - ENT ENT exam: Present: mucous membranes moist, TM's normal bilaterally, normal external ear exam, other (Nose - bilateral mucosal edema). Absent: normal orophraynx (Pharynx - erythematous, no edema) - Neck Neck exam: Present: normal inspection, full ROM. Absent: tenderness, lymphadenopathy - Respiratory Respiratory exam: Present: normal lung sounds bilaterally. Absent: respiratory distress, wheezes, rales, rhonchi, stridor - Cardiovascular Cardiovascular Exam: Present: regular rate (98 BPM during my physical examination), normal rhythm, normal heart sounds - Back Exam Back exam: Present: full ROM - Neurological Exam Neurological exam: Present: alert, oriented X3, normal gait - Psychiatric Psychiatric exam: Present: normal affect, normal mood - Skin Skin exam: Present: warm, dry, intact, normal color ED Course Vital Signs 03/01/17 03/01/17 18:48 21:24 Temperature 98.8 F Pulse Rate 108 H 97 H Respiratory 20 18 Rate Blood Pressure 139/84 Blood Pressure 149/89 [Right] O2 Sat by Pulse 100 99 Oximetry ED Medical Decision Making - Medical Decision Making Discussed x-ray lung nodule results with Dr. Sims and how it was stable compared to his last CT chest in 11/2016, plan made to have patient follow up with his doctor to have repeat CT every 6 months to monitor nodule; discussed plan with patient, told him to drink plenty of fluids, tylenol or motrin for fevers and aches, quit smoking and follow up if sxs don't improve, he verbalized understanding Critical care attestation.: If time is entered above; I have spent that time in minutes in the direct care of this critically ill patient, excluding procedure time. ED Disposition Clinical Impression: Upper respiratory infection Qualifiers: URI type: unspecified viral URI Qualified Code(s): J06.9 - Acute upper respiratory infection, unspecified Disposition: DC- TO HOME OR SELFCARE Is pt being admited?: No Condition: Stable Instructions: How to Stop Smoking (ED), Upper Respiratory Infection (ED), Pulmonary Nodules (ED) Prescriptions: ALBUTEROL Inhaler [ProAir HFA Inhaler] 2 puff IH QID PRN #1 inhalation PRN Reason: Shortness Of Breath Naproxen 500 mg PO BID PRN #20 tablet PRN Reason: Pain Prednisone 50 mg PO QDAY #5 tablet Referrals: PRIMARY CARE, [Primary Care Provider] - 3-5 Days Time of Disposition: 21:11 Print Language: SETSWANA
--- NOTE | 2017-03-01 20:45 | XRay Report ---
FINAL REPORT PROCEDURE: XR CHEST ROUTINE 2V TECHNIQUE: PA and lateral chest radiographs were obtained. CPT 67673 HISTORY: cough; hx lung mass COMPARISON: No prior studies are available for comparison. FINDINGS: Heart: Normal. Mediastinum/Vessels: Normal. Lungs/Pleural space: Lungs are hyperinflated. There is a spherical well-defined lesion in the right middle lobe measuring 2.5 centimeters in diameter. There are no infiltrates. Pleural spaces are clear.. Bony thorax: No acute osseous abnormality. 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 CT is recommended for further evaluation to differentiated from other etiologies such as a metastatic lesion.. No acute infiltrates..
[2017-03-01 21:27] VITALS: BP 149/89
== END 2017-03-01 21:25 | disposition home or self-care (01) ==
LOC: ED 18:30
DX: J06.9 Acute upper respiratory infection, unspecified (principal); F17.210 Nicotine dependence, cigarettes, uncomplicated; F12.10 Cannabis abuse, uncomplicated; F15.10 Other stimulant abuse, uncomplicated
CPT/HCPCS: 71020; 87116; 87430; 99283

== ENCOUNTER 2017-03-04 02:58 | Emergency (ER) | payer SELFPAY ==
[2017-03-04 03:12] LABS: Urine Drugs of Abuse Note Disclamer
[2017-03-04 03:35] LABS: Bilirubin,Urine NEG (Negative); Blood,Urine SM (Negative); Ketones,Urine NEG (Negative); Leukocyte Esterase,Urine NEG (Negative); Nitrite,Urine NEG (Negative); Protein,Urine <15 mg/dL mg/dL (Negative); Urobilinogen,Urine < 2.0 mg/dL (<2.0); WBC,Urine < 1.0 /HPF (0.0-6.0)
[2017-03-04 03:58] LABS: Basophils % (Auto) 0.4 % (0.0-1.8); Eosinophils % (Auto) 0.3 % (0.0-4.3); Hematocrit 43.6 % (35.5-45.6); Hemoglobin 15.2 gm/dl (11.8-15.2); Mean Corpuscular HGB Conc 35 % (32-34); Mean Corpuscular Hemoglobin 31 pg (28-32); Mean Corpuscular Volume 90 fl (84-94); Platelet Count 245 K/mm3 (140-440); Red Blood Count 4.84 M/mm3 (3.65-5.03); Red Cell Distribution Width 12.3 % (13.2-15.2); White Blood Count 8.4 K/mm3 (4.5-11.0)
[2017-03-04 04:17] LABS: Anion Gap 19 mmol/L; BUN/Creatinine Ratio 14; Blood Urea Nitrogen 11 mg/dL (9-20); Calcium 9.4 mg/dL (8.4-10.2); Carbon Dioxide 25 mmol/L (22-30); Chloride 97.4 mmol/L (98-107); Glucose 89 mg/dL (75-100); Potassium 4.1 mmol/L (3.6-5.0); Sodium 137 mmol/L (137-145)
--- NOTE | 2017-03-04 05:06 | Emergency Department Report ---
HPI - General Chief Complaint: Psych Time Seen by Provider: 03/04/17 03:30 - HPI HPI: The patient is 32-year-old male presents for evaluation of anxiousness. The patient reports constant severe anxiousness and paranoia for the past 3-4 hours , exacerbated with bright lights and loud sounds. He admits to methamphetamine use earlier tonight. The patient denies fever, headache, unexplained weight loss or weight gain, heat or cold intolerance, skin, hair, or nail changes, neuro deficits, suicidal or homicidal ideations, or auditory or visual hallucinations. ED Past Medical Hx - Past Medical History Previous Medical History?: Yes Hx Psychiatric Treatment: Yes (ADHD) Additional medical history: nodule on lung - Surgical History Past Surgical History?: Yes Hx Appendectomy: Yes Additional Surgical History: Right Lung biopsy - Social History Smoking Status: Current Every Day Smoker Substance Use Type: Alcohol, Marijuana, Methamphetamines ED Review of Systems ROS: Stated complaint: POSSIBLE OD Other details as noted in HPI Constitutional: denies: fever ENT: denies: throat or neck pain Respiratory: denies: cough, shortness of breath Cardiovascular: denies: chest pain Endocrine: denies unexplained weight loss or gain Gastrointestinal: denies: abdominal pain, nausea Genitourinary: denies: dysuria Musculoskeletal: denies: leg swelling Skin: denies: rash Neurological: denies: headache Hematological/Lymphatic: denies: easy bleeding or easy bruising Psych: reports anxiousness denies sadness or hopelessness Physical Exam - Physical Exam Vital Signs: Vital Signs 03/04/17 03/04/17 03:05 03:39 Temperature 99.8 F H Pulse Rate 99 H Respiratory 18 18 Rate Blood Pressure 166/106 O2 Sat by Pulse 98 98 Oximetry Physical Exam: General: well-nourished, well-developed, no acute distress Head: Normocephalic, atraumatic Eyes: normal sclera ENT: Mucous membranes are pale and dry Neck: No neck stiffness, no cervical adenopathy Respiratory: Breath sounds equal bilaterally, no wheezing, rales, or rhonchi Cardio: S1 and S2 present, no murmurs, rubs, gallops, capillary refill is delayed Abdomen: Normoactive bowel sounds, soft abdomen, no rigidity, no guarding or rebound tenderness Chest WALL/Back: No tenderness to palpation of the chest wall, no CVA tenderness with percussion Musc: No pitting edema Skin: No rash Neuro: no facial drooping, normal speech Psych: Normal affect ED Course Vital Signs 03/04/17 03/04/17 03:05 03:39 Temperature 99.8 F H Pulse Rate 99 H Respiratory 18 18 Rate Blood Pressure 166/106 O2 Sat by Pulse 98 98 Oximetry ED Medical Decision Making - Lab Data Result diagrams: 03/04/17 03:22 03/04/17 03:22 - Medical Decision Making The patient was seen and examined by myself. 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 On initial evaluation, the patient was found to be in no distress. Labs are obtained. Lab results revealed positive urine drug screen and otherwise labs are grossly unremarkable. The patient is medically clear. Mental health is consulted. Mental health evaluates the patient and agrees that the patient is negative for findings concerning for risk of harm to himself. The patient stable for discharge and outpatient follow -up. The patient is discharged in stable condition. Critical care attestation.: If time is entered above; I have spent that time in minutes in the direct care of this critically ill patient, excluding procedure time. ED Disposition Clinical Impression: Dehydration, Methamphetamine abuse, Polysubstance abuse Disposition: DC-01 TO HOME OR SELFCARE Is pt being admited?: No Does the pt Need Aspirin: No Condition: Stable Instructions: Methamphetamine Abuse (ED), Polysubstance Abuse (ED) Referrals: PRIMARY CARE, [Primary Care Provider] - 3-5 Days Time of Disposition: 06:07
[2017-03-04 05:15] VITALS: BP 107/53
== END 2017-03-04 06:31 | disposition home or self-care (01) ==
LOC: EEVIPCON 02:58 → ED 02:58
DX: E86.0 Dehydration (principal); F15.10 Other stimulant abuse, uncomplicated; F19.10 Other psychoactive substance abuse, uncomplicated; F90.9 Attention-deficit hyperactivity disorder, unspecified type; F17.200 Nicotine dependence, unspecified, uncomplicated; F12.10 Cannabis abuse, uncomplicated; Z90.49 Acquired absence of other specified parts of digestive tract
CPT/HCPCS: 36415; 80048; 80307; 81001; 85025; 99284; G0480; 80320

== ENCOUNTER 2017-06-14 22:50 | Inpatient (IN) | payer OTHER ==
[2017-06-14] MEDS ORDERED: ASPIRIN PO ONE (23:19)
[2017-06-15 00:07] LABS: Basophils # (Auto) 0.1 K/mm3 (0.0-0.1); Basophils % (Auto) 0.4 % (0.0-1.8); Eosinophils % (Auto) 0.1 % (0.0-4.3); Hematocrit 42.5 % (35.5-45.6); Hemoglobin 14.4 gm/dl (11.8-15.2); Lymphocytes # (Auto) 1.6 K/mm3 (1.2-5.4); Lymphocytes % (Auto) 11.9 % (13.4-35.0); Mean Corpuscular HGB Conc 34 % (32-34); Mean Corpuscular Hemoglobin 30 pg (28-32); Mean Corpuscular Volume 90 fl (84-94); Monocytes # (Auto) 1.3 K/mm3 (0.0-0.8); Monocytes % (Auto) 9.3 % (0.0-7.3); Platelet Count 292 K/mm3 (140-440); Red Blood Count 4.74 M/mm3 (3.65-5.03); Red Cell Distribution Width 12.5 % (13.2-15.2)
[2017-06-15 00:15] LABS: BUN/Creatinine Ratio 16; Blood Urea Nitrogen 14 mg/dL (9-20); Calcium 9.8 mg/dL (8.4-10.2); Hemolysis Index 7
[2017-06-15 01:04] LABS: Chol/HDL Ratio 2.03 %; HDL Cholesterol 78 mg/dL (40-59); LDL Cholesterol,Direct 68 mg/dL (50-130)
[2017-06-15 01:48] LABS: Bilirubin,Urine NEG (Negative); Blood,Urine SM (Negative); Color,Urine Straw (Yellow); Protein,Urine <15 mg/dL mg/dL (Negative); Urobilinogen,Urine < 2.0 mg/dL (<2.0)
[2017-06-15 01:53] LABS: Benzodiazepines Screen,Urine PRESUMPTIVE NEGATIVE; Cannabinoid Screen,Urine PRESUMPTIVE NEGATIVE; Cocaine Screen,Urine PRESUMPTIVE NEGATIVE; Methadone Screen,Urine PRESUMPTIVE NEGATIVE; Opiate Screen,Urine PRESUMPTIVE NEGATIVE
[2017-06-15 02:07] LABS: Amphetamine Screen,Urine PRESUMPTIVE POSITIVE
[2017-06-15] MEDS ORDERED: VALIUM IV ONE (02:24)
[2017-06-15] MEDS ORDERED: NACL 0.9% 1000 ML 1,000 ML IV ONE (02:24)
--- NOTE | 2017-06-15 02:28 | Emergency Department Report ---
ED Chest Pain HPI - General Chief Complaint: Chest Pain Stated Complaint: CHEST PAIN,JAMARI Time Seen by Provider: 06/15/17 02:19 Source: patient, EMS Mode of arrival: Ambulatory Limitations: No Limitations - History of Present Illness Initial Comments: Patient is a 32-year-old male who admits to smoking methamphetamines earlier today. Patient states he is started having chest pain approximately 11 PM states that he's having pain all over his entire chest as a heaviness with shortness of breath. Patient denies any nausea vomiting diaphoresis. Patient' s feels very anxious and paranoid. Patient states the pain is 6 out of 10 in severity. Patient's states he stress tedious having marital problems and was recently incarcerated. - Related Data Allergies Allergy/AdvReac Type Severity Reaction Status Date / Time No Known Allergies Allergy Verified 03/04/17 03:29 Heart Score - HEART Score History: Moderately suspicious EKG: Non-specific Age: < 45 Risk factors: No known risk factors Troponin: 1-3x normal limit HEART Score: 3 ED Review of Systems ROS: Stated complaint: CHEST PAIN,JAMARI Other details as noted in HPI Comment: All other systems reviewed and negative ED Past Medical Hx - Past Medical History Previous Medical History?: Yes Hx Psychiatric Treatment: Yes (ADHD) Additional medical history: nodule on lung - Surgical History Past Surgical History?: Yes Hx Appendectomy: Yes Additional Surgical History: Right Lung biopsy - Social History Smoking Status: Current Every Day Smoker ED Physical Exam - General Limitations: No Limitations General appearance: alert, anxious - Head Head exam: Present: atraumatic, normocephalic - Eye Eye exam: Present: normal appearance - ENT ENT exam: Present: mucous membranes moist - Neck Neck exam: Present: normal inspection - Respiratory Respiratory exam: Present: normal lung sounds bilaterally. Absent: respiratory distress, wheezes, rales, rhonchi - Cardiovascular Cardiovascular Exam: Present: regular rate, tachycardia. Absent: systolic murmur, diastolic murmur, rubs, gallop - GI/Abdominal GI/Abdominal exam: Present: soft, normal bowel sounds. Absent: distended, tenderness, guarding - Rectal Rectal exam: Present: deferred - Extremities Exam Extremities exam: Present: normal inspection - Back Exam Back exam: Present: normal inspection - Neurological Exam Neurological exam: Present: alert, oriented X3 - Psychiatric Psychiatric exam: Present: normal affect, normal mood - Skin Skin exam: Present: warm, dry, intact, normal color. Absent: rash ED Course Vital Signs 06/14/17 22:58 Temperature 99.6 F Pulse Rate 136 H Respiratory 22 Rate Blood Pressure 154/95 O2 Sat by Pulse 100 Oximetry ROSA score - Rosa Score Age > 65: (0) No Aspirin use within the Past 7 Days: (0) No 3 or more CAD Risk Factors: (0) No 2 or more Angina events in past 24 hrs: (0) No Known CAD with more than 50% Stenosis: (0) No Elevated Cardiac Markers: (0) No ST Deviation Greater than 0.5mm: (0) No ROSA Score: 0 ED Medical Decision Making - Lab Data Result diagrams: 06/14/17 23:39 06/14/17 23:39 Lab Results 06/14/17 06/14/17 06/14/17 Range/Units 23:39 23:39 23:39 WBC 13.5 H (4.5-11.0) K/mm3 RBC 4.74 (3.65-5.03) M/mm3 Hgb 14.4 (11.8-15.2) gm/dl Hct 42.5 (35.5-45.6) % MCV 90 (84-94) fl MCH 30 (28-32) pg MCHC 34 (32-34) % RDW 12.5 L (13.2-15.2) % Plt Count 292 (140-440) K/mm3 Lymph % (Auto) 11.9 L (13.4-35.0) % [place] % (Auto) 9.3 H (0.0-7.3) % Eos % (Auto) 0.1 (0.0-4.3) % Baso % (Auto) 0.4 (0.0-1.8) % Lymph # 1.6 (1.2-5.4) K/mm3 [place] # 1.3 H (0.0-0.8) K/mm3 Eos # 0.0 (0.0-0.4) K/mm3 Baso # 0.1 (0.0-0.1) K/mm3 Seg Neutrophils % 78.3 H (40.0-70.0) % Seg Neutrophils # 10.6 H (1.8-7.7) K/mm3 Sodium 141 (137-145) mmol/L Potassium 3.7 (3.6-5.0) mmol/L Chloride 97.0 L (98-107) mmol/L Carbon Dioxide 27 (22-30) mmol/L Anion Gap 21 mmol/L BUN 14 (9-20) mg/dL Creatinine 0.9 (0.8-1.5) mg/dL Estimated GFR > 60 ml/min BUN/Creatinine Ratio 16 % Glucose 66 L (75-100) mg/dL Calcium 9.8 (8.4-10.2) mg/dL Troponin T 0.038 H (0.00-0.029) ng/mL Triglycerides 69 (2-149) mg/dL Cholesterol 159 (50-199) mg/dL LDL Cholesterol Direct 68 (50-130) mg/dL HDL Cholesterol 78 H (40-59) mg/dL Cholesterol/HDL Ratio 2.03 % Urine Color (Yellow) Urine Turbidity (Clear) Urine pH (5.0-7.0) Ur Specific [place] (1.003-1.030) Urine Protein (Negative) mg/dL Urine Glucose (UA) (Negative) mg/dL Urine Ketones (Negative) mg/dL Urine Blood (Negative) Urine Nitrite (Negative) Urine Bilirubin (Negative) Urine Urobilinogen (<2.0) mg/dL Ur Leukocyte Esterase (Negative) Urine WBC (Auto) (0.0-6.0) /HPF Urine RBC (Auto) (0.0-6.0) /HPF Salicylates < 0.3 L (2.8-20.0) mg/dL Urine Opiates Screen Urine Methadone Screen Acetaminophen (10.0-30.0) ug/mL Ur Barbiturates Screen Ur Phencyclidine Scrn Ur Amphetamines Screen U Benzodiazepines Scrn Urine Cocaine Screen U Marijuana (THC) Screen Drugs of Abuse Note Plasma/Serum Alcohol (0-0.07) % 06/14/17 06/14/17 06/14/17 Range/Units 23:39 23:39 Unknown WBC (4.5-11.0) K/mm3 RBC (3.65-5.03) M/mm3 Hgb (11.8-15.2) gm/dl Hct (35.5-45.6) % MCV (84-94) fl MCH (28-32) pg MCHC (32-34) % RDW (13.2-15.2) % Plt Count (140-440) K/mm3 Lymph % (Auto) (13.4-35.0) % [place] % (Auto) (0.0-7.3) % Eos % (Auto) (0.0-4.3) % Baso % (Auto) (0.0-1.8) % Lymph # (1.2-5.4) K/mm3 [place] # (0.0-0.8) K/mm3 Eos # (0.0-0.4) K/mm3 Baso # (0.0-0.1) K/mm3 Seg Neutrophils % (40.0-70.0) % Seg Neutrophils # (1.8-7.7) K/mm3 Sodium (137-145) mmol/L Potassium (3.6-5.0) mmol/L Chloride (98-107) mmol/L Carbon Dioxide (22-30) mmol/L Anion Gap mmol/L BUN (9-20) mg/dL Creatinine (0.8-1.5) mg/dL Estimated GFR ml/min BUN/Creatinine Ratio % Glucose (75-100) mg/dL Calcium (8.4-10.2) mg/dL Troponin T (0.00-0.029) ng/mL Triglycerides (2-149) mg/dL Cholesterol (50-199) mg/dL LDL Cholesterol Direct (50-130) mg/dL HDL Cholesterol (40-59) mg/dL Cholesterol/HDL Ratio % Urine Color Straw (Yellow) Urine Turbidity Clear (Clear) Urine pH 8.0 H (5.0-7.0) Ur Specific [place] 1.008 (1.003-1.030) Urine Protein <15 mg/dl (Negative) mg/dL Urine Glucose (UA) Neg (Negative) mg/dL Urine Ketones Neg (Negative) mg/dL Urine Blood Sm (Negative) Urine Nitrite Neg (Negative) Urine Bilirubin Neg (Negative) Urine Urobilinogen < 2.0 (<2.0) mg/dL Ur Leukocyte Esterase Sm (Negative) Urine WBC (Auto) 2.0 (0.0-6.0) /HPF Urine RBC (Auto) 1.0 (0.0-6.0) /HPF Salicylates (2.8-20.0) mg/dL Urine Opiates Screen Urine Methadone Screen Acetaminophen < 15.0 (10.0-30.0) ug/mL Ur Barbiturates Screen Ur Phencyclidine Scrn Ur Amphetamines Screen U Benzodiazepines Scrn Urine Cocaine Screen U Marijuana (THC) Screen Drugs of Abuse Note Plasma/Serum Alcohol < 0.01 (0-0.07) % 06/14/17 06/15/17 Range/Units Unknown 02:10 WBC (4.5-11.0) K/mm3 RBC (3.65-5.03) M/mm3 Hgb (11.8-15.2) gm/dl Hct (35.5-45.6) % MCV (84-94) fl MCH (28-32) pg MCHC (32-34) % RDW (13.2-15.2) % Plt Count (140-440) K/mm3 Lymph % (Auto) (13.4-35.0) % [place] % (Auto) (0.0-7.3) % Eos % (Auto) (0.0-4.3) % Baso % (Auto) (0.0-1.8) % Lymph # (1.2-5.4) K/mm3 [place] # (0.0-0.8) K/mm3 Eos # (0.0-0.4) K/mm3 Baso # (0.0-0.1) K/mm3 Seg Neutrophils % (40.0-70.0) % Seg Neutrophils # (1.8-7.7) K/mm3 Sodium (137-145) mmol/L Potassium (3.6-5.0) mmol/L Chloride (98-107) mmol/L Carbon Dioxide (22-30) mmol/L Anion Gap mmol/L BUN (9-20) mg/dL Creatinine (0.8-1.5) mg/dL Estimated GFR ml/min BUN/Creatinine Ratio % Glucose (75-100) mg/dL Calcium (8.4-10.2) mg/dL Troponin T 0.046 H D (0.00-0.029) ng/mL Triglycerides (2-149) mg/dL Cholesterol (50-199) mg/dL LDL Cholesterol Direct (50-130) mg/dL HDL Cholesterol (40-59) mg/dL Cholesterol/HDL Ratio % Urine Color (Yellow) Urine Turbidity (Clear) Urine pH (5.0-7.0) Ur Specific [place] (1.003-1.030) Urine Protein (Negative) mg/dL Urine Glucose (UA) (Negative) mg/dL Urine Ketones (Negative) mg/dL Urine Blood (Negative) Urine Nitrite (Negative) Urine Bilirubin (Negative) Urine Urobilinogen (<2.0) mg/dL Ur Leukocyte Esterase (Negative) Urine WBC (Auto) (0.0-6.0) /HPF Urine RBC (Auto) (0.0-6.0) /HPF Salicylates (2.8-20.0) mg/dL Urine Opiates Screen Presumptive negative Urine Methadone Screen Presumptive negative Acetaminophen (10.0-30.0) ug/mL Ur Barbiturates Screen Presumptive negative Ur Phencyclidine Scrn Presumptive negative Ur Amphetamines Screen Presumptive positive U Benzodiazepines Scrn Presumptive negative Urine Cocaine Screen Presumptive negative U Marijuana (THC) Screen Presumptive negative Drugs of Abuse Note Disclamer Plasma/Serum Alcohol (0-0.07) % - EKG Data -: EKG Interpreted by Me Rate: tachycardia - EKG Data Interpretation: other (AG shows a rate of 133 is sinus tachycardia normal axis normal intervals no ST segment elevation or depressions. Interpretation is 2259 ) - Medical Decision Making Patient is a 32-year-old male who is presenting status post methamphetamine abuse with chest pain. Patient's troponin slightly elevated and rising therefore patient will be admitted to the hospitalist service under Critical Care Time: Yes Critical care time in (mins) excluding proc time.: 30 Critical care attestation.: If time is entered above; I have spent that time in minutes in the direct care of this critically ill patient, excluding procedure time. ED Disposition Clinical Impression: Elevated troponin, Amphetamine abuse Disposition: OP ADMIT IP TO THIS HOSP Is pt being admited?: Yes Does the pt Need Aspirin: No Condition: Poor
[2017-06-15] MEDS ORDERED: ATIVAN IV ONE (02:34)
--- NOTE | 2017-06-15 02:50 | XRay Report ---
FINAL REPORT PROCEDURE: XR CHEST 1V AP TECHNIQUE: Chest radiograph anteroposterior view. CPT 90105 HISTORY: chest pain COMPARISON: 03/01/2017 FINDINGS: Heart: Normal. Mediastinum/Vessels: Normal. Lungs/Pleural space: Right infrahilar mass is again identified. Currently this measures approximately 3.7 centimeters in diameter. The lungs are expanded and clear. There are no effusions or pneumothoraces.. Bony thorax: No acute osseous abnormality. Life support devices: None. IMPRESSION: The heart size is normal. Right infrahilar mass is again identified. Currently this measures approximately 3.7 centimeters in diameter. The lungs are expanded and clear. There are no effusions or pneumothoraces..
[2017-06-15] MEDS ORDERED: BABY ASPIRIN PO STA (03:16)
[2017-06-15] MEDS ORDERED: HABITROL TD ONE (03:21)
--- NOTE | 2017-06-15 03:22 | History and Physical Report ---
History of Present Illness Date of examination: 06/15/17 Chief complaint: Chest pain History of present illness: 32-year-old male presented to the emergency department with complaints of chest pain. Patient is poor historian and couldn't characterize the chest pain. Patient couldn't able to give reliable history. Patient is very disorganized and paranoid, said he couldn't trust anybody and at time he said he doesn't want to tell about himself. Patient said he just get out [facility] [place] [facility]. He said uses meth and last use was 2 days ago. Patient was agitated and ask to leave AMA but patient admitted on 1012. In the emergency department cardiac enzymes were done and was positive for troponin. Given his chest pain and increasing troponin level (trending up) patient is going to be managed for NSTEMI. Couldn't obtained review of systems. Past History Past Medical History: other (substance abuse, lung nodule) Past Surgical History: appendectomy Social history: smoking (1/2 pack cigarettes a day, meth amphetamine), full code. denies: alcohol abuse, prescription drug abuse, IV drug use Family history: no significant family history Medications and Allergies Allergies Allergy/AdvReac Type Severity Reaction Status Date / Time No Known Allergies Allergy Verified 03/04/17 03:29 Active Meds: Active Medications Aspirin (Baby Aspirin) 324 mg PO ONCE STA Stop: 06/15/17 03:17 Aspirin (Ecotrin) 325 mg PO QDAY [facility] Atorvastatin Calcium (Lipitor) 40 mg PO QHS SARAH Carvedilol (Coreg) 3.125 mg PO BID [facility] Sodium Chloride (Nacl 0.9% 1000 Ml) 1,000 mls @ 999 mls/hr IV BOLUS ONE Stop: 06/15/17 03:24 Heparin Sodium/Sodium Chloride (Heparin/ 0.45% Nacl-25,000 Unit/500 Ml) 25,000 unit in 500 mls @ 22.725 mls/hr IV TITRATE SARAH; 15 UNITS/KG/HR PRN Reason: Protocol Lisinopril (Zestril) 2.5 mg PO QDAY SARAH Nicotine (Habitrol) 14 mg TD ONCE ONE Stop: 06/15/17 03:22 Exam - Physical Exam Narrative exam: Not in cardiopulmonary distress. The patient appeared well nourished and normally developed. Vital signs as documented. Head exam is unremarkable. No scleral icterus . Neck is without jugular venous distension, thyromegaly, or carotid bruits. Lungs are clear to auscultation. Cardiac exam reveals regular rate and Rhythm. First and second heart sounds normal. No murmurs, rubs or gallops. Abdominal exam reveals normal bowel sounds, no masses, no organomegaly and no aortic enlargement. Extremities are nonedematous and both femoral and pedal pulses are normal. RECEPTIONIST DOCTOR'S OFFICE: Alert and oriented 3. No focal weakness. Psych: paranoid, disorganized. - Constitutional Vitals: Temp Pulse Resp BP Pulse Ox 99.6 F 136 H 22 154/95 100 06/14/17 22:58 06/14/17 22:58 06/14/17 22:58 06/14/17 22:58 06/14/17 22:58 Results - Labs CBC & Chem 7: 06/14/17 23:39 06/14/17 23:39 Labs: Laboratory Last Values WBC 13.5 K/mm3 (4.5-11.0) H 06/14/17 23:39 RBC 4.74 M/mm3 (3.65-5.03) 06/14/17 23:39 Hgb 14.4 gm/dl (11.8-15.2) 06/14/17 23:39 Hct 42.5 % (35.5-45.6) 06/14/17 23:39 MCV 90 fl (84-94) 06/14/17 23:39 MCH 30 pg (28-32) 06/14/17 23:39 MCHC 34 % (32-34) 06/14/17 23:39 RDW 12.5 % (13.2-15.2) L 06/14/17 23:39 Plt Count 292 K/mm3 (140-440) 06/14/17 23:39 Lymph % (Auto) 11.9 % (13.4-35.0) L 06/14/17 23:39 [place] % (Auto) 9.3 % (0.0-7.3) H 06/14/17 23:39 Eos % (Auto) 0.1 % (0.0-4.3) 06/14/17 23:39 Baso % (Auto) 0.4 % (0.0-1.8) 06/14/17 23:39 Lymph # 1.6 K/mm3 (1.2-5.4) 06/14/17 23:39 [place] # 1.3 K/mm3 (0.0-0.8) H 06/14/17 23:39 Eos # 0.0 K/mm3 (0.0-0.4) 06/14/17 23:39 Baso # 0.1 K/mm3 (0.0-0.1) 06/14/17 23:39 Seg Neutrophils % 78.3 % (40.0-70.0) H 06/14/17 23:39 Seg Neutrophils # 10.6 K/mm3 (1.8-7.7) H 06/14/17 23:39 Sodium 141 mmol/L (137-145) 06/14/17 23:39 Potassium 3.7 mmol/L (3.6-5.0) 06/14/17 23:39 Chloride 97.0 mmol/L (98-107) L 06/14/17 23:39 Carbon Dioxide 27 mmol/L (22-30) 06/14/17 23:39 Anion Gap 21 mmol/L 06/14/17 23:39 BUN 14 mg/dL (9-20) 06/14/17 23:39 Creatinine 0.9 mg/dL (0.8-1.5) 06/14/17 23:39 Estimated GFR > 60 ml/min 06/14/17 23:39 BUN/Creatinine Ratio 16 % 06/14/17 23:39 Glucose 66 mg/dL (75-100) L 06/14/17 23:39 Calcium 9.8 mg/dL (8.4-10.2) 06/14/17 23:39 Troponin T 0.046 ng/mL (0.00-0.029) H D 06/15/17 02:10 Triglycerides 69 mg/dL (2-149) 06/14/17 23:39 Cholesterol 159 mg/dL (50-199) 06/14/17 23:39 LDL Cholesterol Direct 68 mg/dL (50-130) 06/14/17 23:39 HDL Cholesterol 78 mg/dL (40-59) H 06/14/17 23:39 Cholesterol/HDL Ratio 2.03 % 06/14/17 23:39 Urine Color Straw (Yellow) 06/14/17 Unknown Urine Turbidity Clear (Clear) 06/14/17 Unknown Urine pH 8.0 (5.0-7.0) H 06/14/17 Unknown Ur Specific [place] 1.008 (1.003-1.030) 06/14/17 Unknown Urine Protein <15 mg/dl mg/dL (Negative) 06/14/17 Unknown Urine Glucose (UA) Neg mg/dL (Negative) 06/14/17 Unknown Urine Ketones Neg mg/dL (Negative) 06/14/17 Unknown Urine Blood Sm (Negative) 06/14/17 Unknown Urine Nitrite Neg (Negative) 06/14/17 Unknown Urine Bilirubin Neg (Negative) 06/14/17 Unknown Urine Urobilinogen < 2.0 mg/dL (<2.0) 06/14/17 Unknown Ur Leukocyte Esterase Sm (Negative) 06/14/17 Unknown Urine WBC (Auto) 2.0 /HPF (0.0-6.0) 06/14/17 Unknown Urine RBC (Auto) 1.0 /HPF (0.0-6.0) 06/14/17 Unknown Salicylates < 0.3 mg/dL (2.8-20.0) L 06/14/17 23:39 Urine Opiates Screen Presumptive negative 06/14/17 Unknown Urine Methadone Screen Presumptive negative 06/14/17 Unknown Acetaminophen < 15.0 ug/mL (10.0-30.0) 06/14/17 23:39 Ur Barbiturates Screen Presumptive negative 06/14/17 Unknown Ur Phencyclidine Scrn Presumptive negative 06/14/17 Unknown Ur Amphetamines Screen Presumptive positive 06/14/17 Unknown U Benzodiazepines Scrn Presumptive negative 06/14/17 Unknown Urine Cocaine Screen Presumptive negative 06/14/17 Unknown U Marijuana (THC) Screen Presumptive negative 06/14/17 Unknown Drugs of Abuse Note Disclamer 06/14/17 Unknown Plasma/Serum Alcohol < 0.01 % (0-0.07) 06/14/17 23:39 - Imaging and Cardiology Chest x-ray: report reviewed Assessment and Plan Assessment and plan: Acute coronary syndrome/NSTEMI - Patient is being managed according to ACS protocol, cardiology consult Substance abuse, Paranoia, Agitation - When necessary Ativan - Psychiatric consult Active tobacco use - awake overnight counselor when stable DVT prophylaxis - On heparin drip Disposition - Admit to telemetry. Advance Directives: Yes VTE prophylaxis?: Chemical Plan of care discussed with patient/family: Yes
[2017-06-15] MEDS ORDERED: ATIVAN IV PRN (03:27)
[2017-06-15] MEDS ORDERED: MILK OF MAGNESIA PO PRN (03:28)
[2017-06-15] MEDS ORDERED: TYLENOL PO PRN (03:28)
[2017-06-15] MEDS ORDERED: DULCOLAX PR PRN (03:28)
[2017-06-15] MEDS ORDERED: MORPHINE IV PRN (03:28)
[2017-06-15] MEDS ORDERED: ZOFRAN IV PRN (03:28)
[2017-06-15 03:42] LABS: INR 0.96 (0.87-1.13)
[2017-06-15 03:43] LABS: Partial Thromboplastin Time 26.4 Sec. (24.2-36.6)
[2017-06-15] MEDS: HEPARIN/ 0.45% NACL-25,000 UNIT/500 ML 25,000 UNIT/500 ML BAG IV SCH ×2 (04:20→12:17)
[2017-06-15] MEDS: D5/0.45NS 1,000 ML IV SCH (04:27)
[2017-06-15 04:49] LABS: Hematocrit 38.8 % (35.5-45.6); Hemoglobin 13.1 gm/dl (11.8-15.2)
--- NOTE | 2017-06-15 09:45 | Consultation ---
History of Present Illness - Reason for Consult Consult date: 06/15/17 Reason for consult: Mental Health Evaluation Requesting physician: SHANNAN ESPINOSA - Chief Complaint Chief complaint: "I'm having marital problems" - History of Present Psychiatric Illness 32-year-old male who admits to smoking methamphetamines earlier today. Psychiatry was consulted because the patient was placed on a 2013. Today the patient is calm and cooperative during the assessment. He stated that he is having marital problems and was recently released from [facility]. He stated that his life has always included recreational drugs and alcohol (etoh) since he was 14 years old. He stated being "high or intoxicated" at least 3 to 4 days a week. He stated that he was clean during his stay in [facility], but once released he used "drugs and got drunk." He stated that his uses substances also. He was asked about why he was admitted to the hospital, he stated, "I used meth because of my . He stated that she is planning to divorce him, so that "drove" him to get high prior to his admission. He stated that his issues is his fault. The patient was vague about his current medical condition when asked. He denies SI/HI's and AVH's. He denies being depressed and any manic episodes in the past. Medications and Allergies Allergies Allergy/AdvReac Type Severity Reaction Status Date / Time No Known Allergies Allergy Verified 03/04/17 03:29 Home Medications Medication Instructions Recorded Confirmed Last Taken Type No Known Home Medications [No 06/15/17 06/15/17 Unknown History Reported Home Medications] Active Meds: Active Medications Acetaminophen (Tylenol) 650 mg PO Q4H PRN PRN Reason: Pain MILD(1-3)/Fever >100.5/LAMAS Aspirin (Ecotrin) 325 mg PO QDAY SARAH Atorvastatin Calcium (Lipitor) 40 mg PO QHS SARAH Bisacodyl (Dulcolax) 10 mg CO QDAY PRN PRN Reason: Constipation unrelieved by MOM Carvedilol (Coreg) 3.125 mg PO BID SARAH Famotidine (Pepcid) 20 mg PO BID SARAH Heparin Sodium/Sodium Chloride (Heparin/ 0.45% Nacl-25,000 Unit/500 Ml) 25,000 unit in 500 mls @ 20 mls/hr IV TITRATE SARAH; 1,000 UNITS/HR PRN Reason: Protocol Last Admin: 06/15/17 04:20 Dose: 1,000 units/hr, 20 mls/hr Dextrose/Sodium Chloride (D5/0.45ns) 1,000 mls @ 75 mls/hr IV DIRECT SARAH Last Admin: 06/15/17 04:27 Dose: 75 mls/hr Lisinopril (Zestril) 2.5 mg PO QDAY SARAH Lorazepam (Ativan) 1 mg IV Q4H PRN PRN Reason: Agitation Magnesium Hydroxide (Milk Of Magnesia) 30 ml PO Q4H PRN PRN Reason: Constipation Morphine Sulfate (Morphine) 2 mg IV Q4H PRN PRN Reason: Pain, Moderate (4-6) Ondansetron HCl (Zofran) 4 mg IV Q8H PRN PRN Reason: N/V unrelieved by Reglan Past psychiatric history - Past Medical History Past Medical History: other (Lung Mass) Past Surgical History: No surgical history - past Psychiatric treatment and history psychiatric treatment history: Rehab services in the past for substance abuse. Denies a fam psy hx. - Social History Social history: lives with family Mental Status Exam - Vital signs Last Vital Signs Temp 98.8 F 06/15/17 03:32 Pulse 107 H 06/15/17 06:30 Resp 12 06/15/17 07:47 BP 136/78 06/15/17 06:30 Pulse Ox 99 06/15/17 07:47 - Exam Narrative exam: MSE: Appearance: calm, cooperative Behavior: regular eye contact Speech: regular rate and tone Mood: "okay" Affect: congruent to mood Thought Process: circumstantial Thought Content: denies SI/HI's and AVH's Motor Activity: ambulatory Cognition: A/O x 3 Insight: limited Judgment: variable Results Result Diagrams: 06/17/17 04:00 06/14/17 23:39 Abnormal lab results 06/14/17 06/14/17 06/14/17 Range/Units 23:39 23:39 23:39 WBC 13.5 H (4.5-11.0) K/mm3 RDW 12.5 L (13.2-15.2) % Lymph % (Auto) 11.9 L (13.4-35.0) % [place] % (Auto) 9.3 H (0.0-7.3) % [place] # 1.3 H (0.0-0.8) K/mm3 Seg Neutrophils % 78.3 H (40.0-70.0) % Seg Neutrophils # 10.6 H (1.8-7.7) K/mm3 Chloride 97.0 L (98-107) mmol/L Glucose 66 L (75-100) mg/dL Troponin T 0.038 H (0.00-0.029) ng/mL HDL Cholesterol 78 H (40-59) mg/dL Urine pH (5.0-7.0) Salicylates < 0.3 L (2.8-20.0) mg/dL 06/14/17 06/15/17 06/15/17 Range/Units Unknown 02:10 04:31 WBC (4.5-11.0) K/mm3 RDW (13.2-15.2) % Lymph % (Auto) (13.4-35.0) % [place] % (Auto) (0.0-7.3) % [place] # (0.0-0.8) K/mm3 Seg Neutrophils % (40.0-70.0) % Seg Neutrophils # (1.8-7.7) K/mm3 Chloride (98-107) mmol/L Glucose (75-100) mg/dL Troponin T 0.046 H D 0.044 H (0.00-0.029) ng/mL HDL Cholesterol (40-59) mg/dL Urine pH 8.0 H (5.0-7.0) Salicylates (2.8-20.0) mg/dL All other labs normal. Assessment and Plan Assessment and plan: Impression: Substance Use DO (amphetamines). Today the patient is calm and cooperative during the assessment. Family dynamic issues. The patient isn't taking responsibility for his recreational drug use. The patient stated that he abuse alcohol (etoh). Elevated Troponin. DDx: R/O Mood DO Recommendation/Plan: Continue 2013 and gather collateral information to help determine proper dispo. Discussed with the patient the importance to abstain from alcohol consumption (etoh) and recreational drug use.
[2017-06-15] MEDS: ECOTRIN PO SCH (10:56)
[2017-06-15] MEDS: COREG PO SCH ×2 (10:57→22:00)
[2017-06-15] MEDS: ZESTRIL PO SCH (10:58)
[2017-06-15] MEDS: PEPCID PO SCH ×2 (10:58→22:00)
[2017-06-15] MEDS ORDERED: HEPARIN 10,000 UNITS/10 ML IV ONE (11:57)
--- NOTE | 2017-06-15 14:59 | Progress Note ---
Subjective Date of service: 06/15/17 Interval history: CONSULT DICTATED Objective Vital Signs Temp Pulse Resp BP BP Pulse Ox 06/15/17 10:58 114 H 125/79 06/15/17 10:57 114 H 125/79 06/15/17 10:46 98.1 F 111 H 18 125/79 98 06/15/17 10:07 102 H 13 122/84 99 06/15/17 09:20 127 H 21 122/84 06/15/17 09:10 118 H 18 122/84 06/15/17 09:00 111 H 17 122/84 06/15/17 08:50 108 H 17 135/100 100 06/15/17 08:40 113 H 18 135/100 06/15/17 08:30 101 H 17 135/100 06/15/17 08:20 119 H 21 137/88 06/15/17 08:10 98 H 13 137/88 100 06/15/17 08:00 115 H 17 137/88 99 06/15/17 07:50 120 H 15 124/88 100 06/15/17 07:47 12 99 06/15/17 07:40 106 H 15 139/85 100 06/15/17 07:30 118 H 16 139/85 100 06/15/17 07:20 105 H 14 124/88 99 06/15/17 07:10 113 H 16 124/88 99 06/15/17 07:00 136/78 99 06/15/17 06:50 113 H 15 136/78 98 06/15/17 06:30 107 H 17 136/78 99 06/15/17 06:00 103 H 22 130/93 99 06/15/17 05:30 110 H 18 127/78 100 06/15/17 05:00 109 H 16 138/88 99 06/15/17 04:30 110 H 17 134/91 99 06/15/17 04:00 121 H 19 127/88 99 06/15/17 03:32 98.8 F 113 H 14 128/89 99 06/15/17 03:30 113 H 15 130/94 99 06/14/17 22:58 99.6 F 136 H 22 154/95 100 - Labs and Meds Coagulation 06/15/17 Range/Units 02:10 PT 13.3 (12.2-14.9) Sec. INR 0.96 (0.87-1.13) APTT 26.4 (24.2-36.6) Sec. Lipids 06/14/17 Range/Units 23:39 Triglycerides 69 (2-149) mg/dL Cholesterol 159 (50-199) mg/dL HDL Cholesterol 78 H (40-59) mg/dL Cholesterol/HDL Ratio 2.03 % CBC 06/14/17 06/15/17 Range/Units 23:39 04:31 WBC 13.5 H (4.5-11.0) K/mm3 RBC 4.74 (3.65-5.03) M/mm3 Hgb 14.4 13.1 (11.8-15.2) gm/dl Hct 42.5 38.8 (35.5-45.6) % Plt Count 292 223 (140-440) K/mm3 Lymph # 1.6 (1.2-5.4) K/mm3 [place] # 1.3 H (0.0-0.8) K/mm3 Eos # 0.0 (0.0-0.4) K/mm3 Baso # 0.1 (0.0-0.1) K/mm3 Comprehensive Metabolic Panel 06/14/17 Range/Units 23:39 Sodium 141 (137-145) mmol/L Potassium 3.7 (3.6-5.0) mmol/L Chloride 97.0 L (98-107) mmol/L Carbon Dioxide 27 (22-30) mmol/L BUN 14 (9-20) mg/dL Creatinine 0.9 (0.8-1.5) mg/dL Glucose 66 L (75-100) mg/dL Calcium 9.8 (8.4-10.2) mg/dL
[2017-06-15] MEDS: PERCOCET 5/325 PO PRN ×2 (15:18→23:17)
--- NOTE | 2017-06-15 17:32 | Consultation ---
HISTORY OF PRESENT ILLNESS: The patient is a 32-year-old male with a history of smoking and methamphetamine use, who developed chest pain yesterday when he was in a stressful situation. He describes precordial tightness that lasted a number of hours with shortness of breath. It seemed to feel a little better if he would press on it. It was not tender or pleuritic. There was no nausea. He has no exertional chest pain. He has had occasional chest pain episodes in the past, but did not seek medical attention. There have been no palpitations, dizziness, syncope, claudication, or edema. He has been a smoker on and off and methamphetamine user on and off. He has had a little bit of mucus lately. He has a mass in his chest that was biopsied 5 years ago and he states that it is a defect. He was also recently incarcerated. PAST SURGICAL HISTORY: Appendectomy. SOCIAL HISTORY: Smoking one-half pack per day, methamphetamine use. Alcohol use: Unclear. FAMILY HISTORY: Unremarkable. MEDICATIONS: See the nurse's list. ALLERGIES: None.. REVIEW OF SYSTEMS: No other complaints or medical problems. He has never used cocaine. PHYSICAL EXAMINATION: GENERAL: Well developed, well nourished, in no acute distress. GENERAL: Alert, oriented, and cooperative. Mental status normal. EYES, NOSE, AND THROAT: Unremarkable. NECK: Reveals no JVD or bruits. Neck is supple, no masses. LUNGS: Clear. No labored respirations. HEART: Regular rhythm. No rubs, murmurs, or gallops. ABDOMEN: Soft, nontender, no masses. EXTREMITIES: No cyanosis, clubbing, or edema. Peripheral pulses are intact. NEUROLOGICAL: Grossly symmetrical. SKIN: Small chronic lesion in the left calf and a subcutaneous lump, probable cyst. IMPRESSION: 1. Prolonged chest pain with minimal elevation of the troponins and no significant ST-T changes. Possible unstable angina due to his history of smoking. We will recommend stress thallium scanning. 2. Nicotine dependence. 3. Methamphetamine use. 4. Chronic mass in the chest that has been evaluated in the past. 5. Alcohol use. PLAN: As described above. Discussed CAD risk factor modification. JOB# [id number] JDS/NTS
[2017-06-16] MEDS: HEPARIN/ 0.45% NACL-25,000 UNIT/500 ML 25,000 UNIT/500 ML BAG IV SCH (03:18)
[2017-06-16] MEDS ORDERED: LEXISCAN IV ONE (08:17)
[2017-06-16] MEDS: COREG PO SCH ×2 (09:27→21:54)
[2017-06-16] MEDS: ZESTRIL PO SCH (09:27)
[2017-06-16] MEDS: ECOTRIN PO SCH ×2 (09:27→12:47)
[2017-06-16] MEDS: PEPCID PO SCH ×3 (09:27→21:51)
[2017-06-16] MEDS: PERCOCET 5/325 PO PRN (13:21)
--- NOTE | 2017-06-16 13:30 | Progress Note ---
Subjective - Reason for Consult Consult date: 06/16/17 Reason for consult: Psychiatry Follow-up - Chief Complaint Chief complaint: "I have to do better" 32-year-old male who admits to smoking methamphetamines earlier today. Psychiatry was consulted because the patient was placed on a 2013. Today the patient is calm and cooperative during the assessment. He stated that he must make better decisions with his life. He stated rehab services is priority for him once discharged. He stated that he had a good conversation with his spouse last night. He denies SI/HI's and AVH's. Mental Status Exam - Vital signs Last Vital Signs Temp 97.7 F 06/16/17 03:36 Pulse 82 06/16/17 05:32 Resp 20 06/16/17 13:21 BP 99/48 06/16/17 03:36 Pulse Ox 98 06/16/17 03:36 - Exam Narrative exam: MSE: Appearance: calm, cooperative Behavior: regular eye contact Speech: regular rate and tone Mood: "okay" Affect: congruent to mood Thought Process: logical Thought Content: denies SI/HI's and AVH's Motor Activity: lying bed Cognition: A/O x 3 Insight: fair Judgment: fair Assessment and Plan Impression: Substance Use DO (amphetamines). Today the patient is calm and cooperative during the assessment. Family dynamic issues. The patient stated that he abuse alcohol (etoh). Troponin trending down. Pending stress test results. DDx: R/O Mood DO Recommendation/Plan: Continue 2013 and gather collateral information to help determine proper dispo. Will follow up with patient daily. Discussed with the patient the importance to abstain from alcohol consumption (etoh) and recreational drug use.
--- NOTE | 2017-06-16 13:55 | Progress Note ---
Assessment and Plan - Patient Problems (1) Chest pain Current Visit: Yes Status: Acute Plan to address problem: Chest pain is atypical. ECG is sinus rhythm, normal ECG. 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 There was no chest pain, no ST changes of ischemia and no dysrhythmias. Thallium images done were normal. 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 There was no chest pain, no ST changes of ischemia and no dysrhythmias. Thallium images done were normal. Objective Vital Signs Temp Pulse Resp BP Pulse Ox 06/16/17 13:21 20 06/16/17 05:32 82 06/16/17 03:36 97.7 F 46 L 18 99/48 98 06/15/17 23:21 97.6 F 74 16 105/62 97 06/15/17 22:00 97 H 103/62 06/15/17 19:45 98.4 F 97 H 16 103/62 97 06/15/17 16:10 98.0 F 94 H 18 114/80 96 - Physical Examination General: Appears Well, No Apparent Distress HEENT: Positive: PERRL Neck: Positive: neck supple Cardiac: Positive: Reg Rate and Rhythm Lungs: Positive: clear to auscultation Neuro: Positive: Grossly Intact Abdomen: Positive: Soft Skin: Positive: Clear Extremities: Absent: edema
[2017-06-16] MEDS ORDERED: HEPARIN 10,000 UNITS/10 ML IV ONE (15:20)
--- NOTE | 2017-06-16 15:36 | Progress Note ---
Assessment and Plan Assessment and plan: 32-year-old male presented to the emergency department with complaints of chest pain. He had recently been released from shelter, got into an argument with his and did some crystal meth, after which he was displaying disorganized and paranoid behavior and not making sense. his mentation has since improved Chest pain- likely due to meth toxicity -Stress test negative, cardiology input appreciated Meth abuse/toxicity -patient has been counseled about cessation Disorganized behavior/paranoia -continue 1013, mental health consult pending Tobacco abuse has been counseled, nicotine patch was offered, he states that he doesn't need them. History Interval history: no cp, no sob, no cough, no abdominal pain, no fever, no SI Hospitalist Physical - Constitutional Vitals: Temp Pulse Resp BP Pulse Ox 97.7 F 82 20 99/48 98 06/16/17 03:36 06/16/17 05:32 06/16/17 13:21 06/16/17 03:36 06/16/17 03:36 General appearance: Present: no acute distress - EENT Eyes: Present: PERRL ENT: hearing intact - Neck Neck: Present: supple - Respiratory Respiratory effort: normal Respiratory: bilateral: CTA - Cardiovascular Rhythm: regular Heart Sounds: Present: S1 & S2 - Extremities Extremities: no ischemia Peripheral Pulses: within normal limits - Abdominal General gastrointestinal: soft, non-tender - Integumentary Integumentary: Present: clear, warm - Psychiatric Psychiatric: appropriate mood/affect, intact judgment & insight, cooperative - Neurologic Neurologic: CNII-XII intact, moves all extremities Results - Labs CBC & Chem 7: 06/17/17 04:00 06/14/17 23:39 Labs: Laboratory Last Values WBC 13.5 K/mm3 (4.5-11.0) H 06/14/17 23:39 RBC 4.74 M/mm3 (3.65-5.03) 06/14/17 23:39 Hgb 13.1 gm/dl (11.8-15.2) 06/15/17 04:31 Hct 38.8 % (35.5-45.6) 06/15/17 04:31 MCV 90 fl (84-94) 06/14/17 23:39 MCH 30 pg (28-32) 06/14/17 23:39 MCHC 34 % (32-34) 06/14/17 23:39 RDW 12.5 % (13.2-15.2) L 06/14/17 23:39 Plt Count 223 K/mm3 (140-440) 06/15/17 04:31 Lymph % (Auto) 11.9 % (13.4-35.0) L 06/14/17 23:39 [place] % (Auto) 9.3 % (0.0-7.3) H 06/14/17 23:39 Eos % (Auto) 0.1 % (0.0-4.3) 06/14/17 23:39 Baso % (Auto) 0.4 % (0.0-1.8) 06/14/17 23:39 Lymph # 1.6 K/mm3 (1.2-5.4) 06/14/17 23:39 [place] # 1.3 K/mm3 (0.0-0.8) H 06/14/17 23:39 Eos # 0.0 K/mm3 (0.0-0.4) 06/14/17 23:39 Baso # 0.1 K/mm3 (0.0-0.1) 06/14/17 23:39 Seg Neutrophils % 78.3 % (40.0-70.0) H 06/14/17 23:39 Seg Neutrophils # 10.6 K/mm3 (1.8-7.7) H 06/14/17 23:39 PT 13.3 Sec. (12.2-14.9) 06/15/17 02:10 INR 0.96 (0.87-1.13) 06/15/17 02:10 APTT 26.4 Sec. (24.2-36.6) 06/15/17 02:10 Heparin Anti-Xa Level < 0.10 U.I./ml (0.3-0.7) L 06/16/17 12:48 Sodium 141 mmol/L (137-145) 06/14/17 23:39 Potassium 3.7 mmol/L (3.6-5.0) 06/14/17 23:39 Chloride 97.0 mmol/L (98-107) L 06/14/17 23:39 Carbon Dioxide 27 mmol/L (22-30) 06/14/17 23:39 Anion Gap 21 mmol/L 06/14/17 23:39 BUN 14 mg/dL (9-20) 06/14/17 23:39 Creatinine 0.9 mg/dL (0.8-1.5) 06/14/17 23:39 Estimated GFR > 60 ml/min 06/14/17 23:39 BUN/Creatinine Ratio 16 % 06/14/17 23:39 Glucose 66 mg/dL (75-100) L 06/14/17 23:39 Calcium 9.8 mg/dL (8.4-10.2) 06/14/17 23:39 Troponin T 0.024 ng/mL (0.00-0.029) 06/15/17 07:34 Triglycerides 69 mg/dL (2-149) 06/14/17 23:39 Cholesterol 159 mg/dL (50-199) 06/14/17 23:39 LDL Cholesterol Direct 68 mg/dL (50-130) 06/14/17 23:39 HDL Cholesterol 78 mg/dL (40-59) H 06/14/17 23:39 Cholesterol/HDL Ratio 2.03 % 06/14/17 23:39 Urine Color Straw (Yellow) 06/14/17 Unknown Urine Turbidity Clear (Clear) 06/14/17 Unknown Urine pH 8.0 (5.0-7.0) H 06/14/17 Unknown Ur Specific [place] 1.008 (1.003-1.030) 06/14/17 Unknown Urine Protein <15 mg/dl mg/dL (Negative) 06/14/17 Unknown Urine Glucose (UA) Neg mg/dL (Negative) 06/14/17 Unknown Urine Ketones Neg mg/dL (Negative) 06/14/17 Unknown Urine Blood Sm (Negative) 06/14/17 Unknown Urine Nitrite Neg (Negative) 06/14/17 Unknown Urine Bilirubin Neg (Negative) 06/14/17 Unknown Urine Urobilinogen < 2.0 mg/dL (<2.0) 06/14/17 Unknown Ur Leukocyte Esterase Sm (Negative) 06/14/17 Unknown Urine WBC (Auto) 2.0 /HPF (0.0-6.0) 06/14/17 Unknown Urine RBC (Auto) 1.0 /HPF (0.0-6.0) 06/14/17 Unknown Salicylates < 0.3 mg/dL (2.8-20.0) L 06/14/17 23:39 Urine Opiates Screen Presumptive negative 06/14/17 Unknown Urine Methadone Screen Presumptive negative 06/14/17 Unknown Acetaminophen < 15.0 ug/mL (10.0-30.0) 06/14/17 23:39 Ur Barbiturates Screen Presumptive negative 06/14/17 Unknown Ur Phencyclidine Scrn Presumptive negative 06/14/17 Unknown Ur Amphetamines Screen Presumptive positive 06/14/17 Unknown U Benzodiazepines Scrn Presumptive negative 06/14/17 Unknown Urine Cocaine Screen Presumptive negative 06/14/17 Unknown U Marijuana (THC) Screen Presumptive negative 06/14/17 Unknown Drugs of Abuse Note Disclamer 06/14/17 Unknown Plasma/Serum Alcohol < 0.01 % (0-0.07) 06/14/17 23:39
--- NOTE | 2017-06-17 00:49 | Treadmill Report ---
THALLIUM STRESS TEST REASON FOR TEST: Chest pain. The patient exercised for 12 minutes of a Jung protocol, completing stage 4 and achieving 13 mets. The peak heart rate was 141 beats per minute. The peak blood pressure was 121 systolic. There was no chest pain. The test was stopped for fatigue. Baseline ECG was sinus rhythm. With exercise, there were no ST changes of ischemia. No significant dysrhythmias were noted. THALLIUM STUDY: Left ventricular chamber size was at the upper limits of normal. Perfusion study demonstrates homogeneous uptake of the tracer in all segments, no significant perfusion defects identified. Gated analysis suggests left ventricular systolic function mildly impaired with ejection fraction calculated at 47%. CONCLUSION: 1. Excellent exercise tolerance. 2. No chest pain at maximum exercise of [address] changes of ischemia, no significant dysrhythmias. 4. Thallium images revealed no perfusion defects and no ischemia. This is a negative stress thallium study. Recommend clinical correlation and echocardiographic reassessment of left ventricular systolic function. JOB# [id number] CA/NTS
[2017-06-17 07:32] LABS: Hematocrit 37.4 % (35.5-45.6); Hemoglobin 12.8 gm/dl (11.8-15.2)
[2017-06-17] MEDS: HEPARIN/ 0.45% NACL-25,000 UNIT/500 ML 25,000 UNIT/500 ML BAG IV SCH (07:49)
[2017-06-17] MEDS: D5/0.45NS 1,000 ML IV SCH (07:50)
[2017-06-17 08:45] VITALS: BP 103/63
[2017-06-17] MEDS: ZESTRIL PO SCH (09:00)
[2017-06-17] MEDS: COREG PO SCH (09:00)
--- NOTE | 2017-06-17 10:51 | Progress Note ---
Subjective - Reason for Consult Consult date: 06/17/17 Reason for consult: Psychiatry Follow-up - Chief Complaint Chief complaint: "Thanks for everything" 32-year-old male who admits to smoking methamphetamines earlier today. Psychiatry was consulted because the patient was placed on a 2013. Today the patient is calm and cooperative during the assessment. The patient is adamant about receiving help for his substance abuse and his alcohol addiction. Per collateral information from his Bhavana Hwang, she stated that her can follow up with [facility] for outpatient rehab services which is near their home. She stated that he would benefit from their services. He denies SI/HI's and AVH's. Mental Status Exam - Vital signs Last Vital Signs Temp 97.7 F 06/17/17 08:35 Pulse 66 06/17/17 08:35 Resp 18 06/17/17 08:35 BP 103/63 06/17/17 08:35 Pulse Ox 99 06/17/17 08:35 - Exam Narrative exam: MSE: Appearance: calm, cooperative Behavior: regular eye contact Speech: regular rate and tone Mood: "okay" Affect: congruent to mood Thought Process: logical Thought Content: denies SI/HI's and AVH's Motor Activity: lying bed Cognition: A/O x 3 Insight: appropriate Judgment: appropriate Assessment and Plan Impression: Substance Use DO (amphetamines). Today the patient is calm and cooperative during the assessment. The patient stated that he abuse alcohol ( etoh). Stress Test negative DDx: R/O Mood DO Recommendation/Plan: Rescind 2012. Patient is aware of [facility] rehab service near his residence. Also, the patient given outpatient rehab services for [facility]. Discussed with the patient the importance to abstain from alcohol consumption (etoh) and recreational drug use.
--- NOTE | 2017-06-17 11:41 | Progress Note ---
Assessment and Plan Assessment and plan: Chest pain - stress test is negative Substance abuse, Paranoia, Agitation - Psychiatric consult appreciated Active tobacco use - licensed professional counselor when stable DVT prophylaxis - on lovenox Disposition - clear medically for discharge. Discharge per psychiatry. Hospitalist Physical - Physical exam Narrative exam: Not in cardiopulmonary distress. The patient appeared well nourished and normally developed. Vital signs as documented. Head exam is unremarkable. No scleral icterus . Neck is without jugular venous distension, thyromegaly, or carotid bruits. Lungs are clear to auscultation. Cardiac exam reveals regular rate and Rhythm. First and second heart sounds normal. No murmurs, rubs or gallops. Abdominal exam reveals normal bowel sounds, no masses, no organomegaly and no aortic enlargement. Extremities are nonedematous and both femoral and pedal pulses are normal. 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 No focal weakness. Psych: paranoid, disorganized. - Constitutional Vitals: Temp Pulse Resp BP Pulse Ox 97.7 F 66 18 103/63 99 06/17/17 08:35 06/17/17 08:35 06/17/17 08:35 06/17/17 08:35 06/17/17 08:35 General appearance: Present: no acute distress Results - Labs CBC & Chem 7: 06/17/17 04:00 06/14/17 23:39 Labs: Laboratory Last Values WBC 13.5 K/mm3 (4.5-11.0) H 06/14/17 23:39 RBC 4.74 M/mm3 (3.65-5.03) 06/14/17 23:39 Hgb 12.8 gm/dl (11.8-15.2) 06/17/17 04:00 Hct 37.4 % (35.5-45.6) 06/17/17 04:00 MCV 90 fl (84-94) 06/14/17 23:39 MCH 30 pg (28-32) 06/14/17 23:39 MCHC 34 % (32-34) 06/14/17 23:39 RDW 12.5 % (13.2-15.2) L 06/14/17 23:39 Plt Count 167 K/mm3 (140-440) 06/17/17 04:00 Lymph % (Auto) 11.9 % (13.4-35.0) L 06/14/17 23:39 [place] % (Auto) 9.3 % (0.0-7.3) H 06/14/17 23:39 Eos % (Auto) 0.1 % (0.0-4.3) 06/14/17 23:39 Baso % (Auto) 0.4 % (0.0-1.8) 06/14/17 23:39 Lymph # 1.6 K/mm3 (1.2-5.4) 06/14/17 23:39 [place] # 1.3 K/mm3 (0.0-0.8) H 06/14/17 23:39 Eos # 0.0 K/mm3 (0.0-0.4) 06/14/17 23:39 Baso # 0.1 K/mm3 (0.0-0.1) 06/14/17 23:39 Seg Neutrophils % 78.3 % (40.0-70.0) H 06/14/17 23:39 Seg Neutrophils # 10.6 K/mm3 (1.8-7.7) H 06/14/17 23:39 PT 13.3 Sec. (12.2-14.9) 06/15/17 02:10 INR 0.96 (0.87-1.13) 06/15/17 02:10 APTT 26.4 Sec. (24.2-36.6) 06/15/17 02:10 Heparin Anti-Xa Level 0.41 U.I./ml (0.3-0.7) 06/16/17 21:33 Sodium 141 mmol/L (137-145) 06/14/17 23:39 Potassium 3.7 mmol/L (3.6-5.0) 06/14/17 23:39 Chloride 97.0 mmol/L (98-107) L 06/14/17 23:39 Carbon Dioxide 27 mmol/L (22-30) 06/14/17 23:39 Anion Gap 21 mmol/L 06/14/17 23:39 BUN 14 mg/dL (9-20) 06/14/17 23:39 Creatinine 0.9 mg/dL (0.8-1.5) 06/14/17 23:39 Estimated GFR > 60 ml/min 06/14/17 23:39 BUN/Creatinine Ratio 16 % 06/14/17 23:39 Glucose 66 mg/dL (75-100) L 06/14/17 23:39 Calcium 9.8 mg/dL (8.4-10.2) 06/14/17 23:39 Troponin T 0.024 ng/mL (0.00-0.029) 06/15/17 07:34 Triglycerides 69 mg/dL (2-149) 06/14/17 23:39 Cholesterol 159 mg/dL (50-199) 06/14/17 23:39 LDL Cholesterol Direct 68 mg/dL (50-130) 06/14/17 23:39 HDL Cholesterol 78 mg/dL (40-59) H 06/14/17 23:39 Cholesterol/HDL Ratio 2.03 % 06/14/17 23:39 Urine Color Straw (Yellow) 06/14/17 Unknown Urine Turbidity Clear (Clear) 06/14/17 Unknown Urine pH 8.0 (5.0-7.0) H 06/14/17 Unknown Ur Specific [place] 1.008 (1.003-1.030) 06/14/17 Unknown Urine Protein <15 mg/dl mg/dL (Negative) 06/14/17 Unknown Urine Glucose (UA) Neg mg/dL (Negative) 06/14/17 Unknown Urine Ketones Neg mg/dL (Negative) 06/14/17 Unknown Urine Blood Sm (Negative) 06/14/17 Unknown Urine Nitrite Neg (Negative) 06/14/17 Unknown Urine Bilirubin Neg (Negative) 06/14/17 Unknown Urine Urobilinogen < 2.0 mg/dL (<2.0) 06/14/17 Unknown Ur Leukocyte Esterase Sm (Negative) 06/14/17 Unknown Urine WBC (Auto) 2.0 /HPF (0.0-6.0) 06/14/17 Unknown Urine RBC (Auto) 1.0 /HPF (0.0-6.0) 06/14/17 Unknown Salicylates < 0.3 mg/dL (2.8-20.0) L 06/14/17 23:39 Urine Opiates Screen Presumptive negative 06/14/17 Unknown Urine Methadone Screen Presumptive negative 06/14/17 Unknown Acetaminophen < 15.0 ug/mL (10.0-30.0) 06/14/17 23:39 Ur Barbiturates Screen Presumptive negative 06/14/17 Unknown Ur Phencyclidine Scrn Presumptive negative 06/14/17 Unknown Ur Amphetamines Screen Presumptive positive 06/14/17 Unknown U Benzodiazepines Scrn Presumptive negative 06/14/17 Unknown Urine Cocaine Screen Presumptive negative 06/14/17 Unknown U Marijuana (THC) Screen Presumptive negative 06/14/17 Unknown Drugs of Abuse Note Disclamer 06/14/17 Unknown Plasma/Serum Alcohol < 0.01 % (0-0.07) 06/14/17 23:39
[2017-06-17] MEDS: ECOTRIN PO SCH (11:54)
[2017-06-17] MEDS: PEPCID PO SCH (11:54)
--- NOTE | 2017-06-17 13:37 | Discharge Summary ---
Providers - Providers Date of Admission: 06/15/17 03:28 Date of discharge: 06/17/17 Attending physician: SIM GOODRICH MD 06/15/17 Consult to Cardiac Rehabilitation [CONS] Routine Reason For Exam: Phase 1 06/15/17 03:24 Consult to Mental Health [CONS] Routine Reason For Exam: substance abuse, paranoia Place consult to:: mental health Notified:: y Was contact made?: Yes Primary care physician: TACHO JACKSON Hospitalization Reason for admission: Amphetamine toxicity, Chest pain Condition: Poor Pertinent studies: Cardiac stress test was negative for acute ischemia Hospital course: 32-year-old male with past medical history significant for substance abuse was presented to the emergency department for complaints of altered mental status, and chest pain. His emergency department he had a slight elevation in troponin level and was admitted to the floor and cardiology consulted, cardiac stress test was done and negative for ischemia. Patient has positive urine drug screen test for amphetamine and marijuana. Patient was paranoid and psych was consulted and was on 1013 admitted to the floor. Currently patient is alert and oriented,no suicidal ideation, no paranoia. Patient was counseled about cessation of using amphetamine and marijuana and patient agrees with plan. Psychiatry gave her resources that can help with cessation. Patient was hemodynamically stable at the time of discharge. Patient doesn't need any medications at the time of discharge. Disposition: -01 TO HOME OR SELFCARE Time spent for discharge: 31 minutes - Discharge Diagnoses (1) Amphetamine abuse Status: Acute (2) Chest pain Status: Acute (3) Elevated troponin Status: Acute Core Measure Documentation - Palliative Care Palliative Care/ Comfort Measures: Not Applicable - Core Measures Any of the following diagnoses?: none Exam - Physical Exam Narrative exam: Not in cardiopulmonary distress. The patient appeared well nourished and normally developed. Vital signs as documented. Head exam is unremarkable. No scleral icterus . Neck is without jugular venous distension, thyromegaly, or carotid bruits. Lungs are clear to auscultation. Cardiac exam reveals regular rate and Rhythm. First and second heart sounds normal. No murmurs, rubs or gallops. Abdominal exam reveals normal bowel sounds, no masses, no organomegaly and no aortic enlargement. Extremities are nonedematous and both femoral and pedal pulses are normal. 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 No focal weakness. - Constitutional Vitals: Temp Pulse Resp BP Pulse Ox 97.7 F 66 18 103/63 99 06/17/17 08:35 06/17/17 08:35 06/17/17 08:35 06/17/17 08:35 06/17/17 08:35 Plan Activity: no restrictions Weight Bearing Status: Full Weight Bearing Diet: regular Follow up with: TACHO JACKSON MD [Primary Care Provider] - 7 Days
[2017-06-17] MEDS ORDERED: LOVENOX SUB-Q SCH (22:00)
== END 2017-06-17 15:30 | disposition home or self-care (01) | DRG 282 ==
LOC: ED 22:50 → 4A 06-15 03:28
PROVIDERS: ADMIT Internal Medicine; ATTEND Internal Medicine
DX: I21.4 Non-ST elevation (NSTEMI) myocardial infarction (principal); F15.10 Other stimulant abuse, uncomplicated; T43.625A Adverse effect of amphetamines, initial encounter; F17.200 Nicotine dependence, unspecified, uncomplicated; R22.2 Localized swelling, mass and lump, trunk; F22 Delusional disorders; Y92.89 Other specified places as the place of occurrence of the external cause; Z71.51 Drug abuse counseling and surveillance of drug abuser; Z90.49 Acquired absence of other specified parts of digestive tract; Z72.89 Other problems related to lifestyle
CPT/HCPCS: 36415; 71045; 78452; 80048; 80061; 80307; 80320; 81001; 84484; 85014; 85018; 85025; 85049; 85520; 85610; 85730; 93005; 93010; 93017; 93306; 99406; A9270-GY; A9502; G0480; J1644; J2060; J2270; J2785; J7030

== ENCOUNTER 2017-08-10 14:16 | Emergency (ER) | payer OTHER ==
[2017-08-10] MEDS ORDERED: NACL 0.9% 500 ML 0 ML ONE (14:19)
[2017-08-10] MEDS ORDERED: TYLENOL #3 ONE (14:20)
[2017-08-10 15:58] LABS: BUN/Creatinine Ratio 11; Blood Urea Nitrogen 10 mg/dL (9-20); Calcium 9.6 mg/dL (8.4-10.2); Hemolysis Index 3
[2017-08-10 16:01] LABS: Basophils % (Auto) 0.3 % (0.0-1.8); Hemoglobin 15.8 gm/dl (11.8-15.2); Lymphocytes # (Auto) 1.2 K/mm3 (1.2-5.4); Lymphocytes % (Auto) 12.1 % (13.4-35.0); Mean Corpuscular HGB Conc 34 % (32-34); Mean Corpuscular Hemoglobin 31 pg (28-32); Mean Corpuscular Volume 89 fl (84-94); Monocytes # (Auto) 0.5 K/mm3 (0.0-0.8); Monocytes % (Auto) 4.9 % (0.0-7.3); Platelet Count 313 K/mm3 (140-440); Red Blood Count 5.17 M/mm3 (3.65-5.03); Red Cell Distribution Width 13.3 % (13.2-15.2)
[2017-08-10 16:18] LABS: Benzodiazepines Screen,Urine PRESUMPTIVE NEGATIVE; Bilirubin,Urine NEG (Negative); Blood,Urine NEG (Negative); Cocaine Screen,Urine PRESUMPTIVE NEGATIVE; Color,Urine Yellow (Yellow); Methadone Screen,Urine PRESUMPTIVE NEGATIVE; Mucus,Urine FEW /HPF; Opiate Screen,Urine PRESUMPTIVE NEGATIVE; Urobilinogen,Urine < 2.0 mg/dL (<2.0)
[2017-08-10 16:29] LABS: Amphetamine Screen,Urine PRESUMPTIVE POSITIVE; Cannabinoid Screen,Urine PRESUMPTIVE POSITIVE
[2017-08-10] MEDS ORDERED: ATIVAN IV ONE (17:45)
[2017-08-10 18:11] LABS: Creatine Kinase MB 2.9 ng/mL (0.0-4.0)
--- NOTE | 2017-08-10 20:08 | XRay Report ---
FINAL REPORT EXAM: XR CHEST 1V AP HISTORY: SOB TECHNIQUE: Portable upright chest x-ray Comparison: 06/15/2017 FINDINGS: Normal heart size. 3.6 centimeter right infrahilar mass. This mass is fairly dense but has enlarged since last February Lungs are otherwise clear. Imaged axial skeleton is unremarkable IMPRESSION: 3.6 centimeter right infrahilar mass is fairly dense but has grown since last February. Lungs are otherwise clear.
[2017-08-10] MEDS ORDERED: NACL 0.9% 1000 ML 1,000 ML IV ONE (20:35)
--- NOTE | 2017-08-10 21:38 | Emergency Department Report ---
ED Psych HPI - General Chief Complaint: Psych Stated Complaint: MENTAL HEALTH EVALUATION Time Seen by Provider: 08/10/17 17:17 Source: patient Mode of arrival: Ambulatory Limitations: No Limitations - History of Present Illness MD Complaint: suicidal ideation -: Sudden Associated Psychiatric Symptoms: suicidal ideation Quality: constant Improves With: none Worsens With: none Context: recent drug abuse Associated Symptoms: shortness of breath Treatments Prior to Arrival: none If Self Harm: admits thoughts of - Related Data Home Medications Medication Instructions Recorded Confirmed Last Taken traMADol [Ultram] 50 mg PO BID 08/10/17 08/10/17 Unknown Allergies Allergy/AdvReac Type Severity Reaction Status Date / Time No Known Allergies Allergy Verified 03/04/17 03:29 ED Review of Systems ROS: Stated complaint: MENTAL HEALTH EVALUATION Other details as noted in HPI Comment: All other systems reviewed and negative Constitutional: no symptoms reported Eyes: denies: vision change ENT: denies: ear pain Respiratory: shortness of breath Cardiovascular: chest pain Endocrine: no symptoms reported Gastrointestinal: denies: abdominal pain, nausea, vomiting Genitourinary: denies: urgency, dysuria, hematuria Musculoskeletal: denies: back pain, joint swelling Skin: denies: rash, change in color Neurological: denies: headache, numbness, paresthesias Psychiatric: anxiety, auditory hallucinations, visual hallucinations, suicidal thoughts. denies: homicidal thoughts Hematological/Lymphatic: denies: easy bleeding, easy bruising ED Past Medical Hx - Past Medical History Hx Congestive Heart Failure: No Hx Diabetes: No Hx Psychiatric Treatment: Yes (ADHD,drug abuse,alcohol) Hx Asthma: No Hx COPD: No Additional medical history: nodule on lung - Surgical History Hx Appendectomy: Yes Additional Surgical History: Right Lung biopsy - Social History Smoking Status: Current Every Day Smoker Substance Use Type: Alcohol, Methamphetamines - Medications Home Medications: Home Medications Medication Instructions Recorded Confirmed Last Taken Type traMADol [Ultram] 50 mg PO BID 08/10/17 08/10/17 Unknown History ED Physical Exam - General Limitations: No Limitations General appearance: alert, anxious, in distress - Head Head exam: Present: atraumatic, normocephalic, normal inspection - Eye Eye exam: Present: normal appearance, PERRL, EOMI Pupils: Present: mydriatic - ENT ENT exam: Present: normal exam, normal orophraynx, mucous membranes dry - Neck Neck exam: Present: normal inspection, full ROM - Respiratory Respiratory exam: Present: normal lung sounds bilaterally. Absent: respiratory distress, wheezes, rhonchi, chest wall tenderness - Cardiovascular Cardiovascular Exam: Present: regular rate, normal rhythm - GI/Abdominal GI/Abdominal exam: Present: soft, normal bowel sounds. Absent: tenderness, guarding, rebound - Extremities Exam Extremities exam: Present: normal inspection, full ROM, normal capillary refill - Back Exam Back exam: Present: normal inspection, full ROM. Absent: tenderness - Neurological Exam Neurological exam: Present: alert, oriented X3, CN II-XII intact - Skin Skin exam: Present: warm, dry, intact, normal color, rash ED Course Vital Signs 08/10/17 08/10/17 15:04 18:25 Temperature 98.7 F Pulse Rate 139 H Respiratory 18 24 Rate Blood Pressure 148/77 O2 Sat by Pulse 100 100 Oximetry - Reevaluation(s) Reevaluation #1: 08/10/17 21:37 Patient is medically cleared for psychiatric evaluation. ED Medical Decision Making - Lab Data Result diagrams: 08/10/17 15:28 08/10/17 15:28 - Differential Diagnosis Drug abuse. Suicide ideation. Critical care attestation.: If time is entered above; I have spent that time in minutes in the direct care of this critically ill patient, excluding procedure time. ED Disposition Clinical Impression: Amphetamine abuse, Marijuana abuse, Suicide ideation Chest pain Qualifiers: Chest pain type: unspecified Qualified Code(s): R07.9 - Chest pain, unspecified Disposition: [id number]/TX-65 PSY HOSP/PSY UNIT Does the pt Need Aspirin: No Condition: Stable Instructions: Chest Pain (ED) Referrals: TACHO JACKSON MD [Primary Care Provider] - 3-5 Days
--- NOTE | 2017-08-11 14:34 | Consultation ---
History of Present Illness - Reason for Consult Consult date: 08/11/17 Reason for consult: Mental Health Evaluation Requesting physician: KASI JOSHI - Chief Complaint Chief complaint: "I used meth" - History of Present Psychiatric Illness 32 y.o. white male presenting to [facility] for paranoia. This patient is known to me. Today the patient is calm and cooperative during the assessment. He stated that he used "meth" and smoked marijuana yesterday prior to his admission. He stated being "clean " for months prior to this incident. He stated that he felt paranoid and may have mentioned being suicidal. He stated that it was "drugs" that caused him to say things that's not true. He stated that he is scheduled to be a resident at a 28 day program for substance abuse ([facility]). Also, he stated that he has a court date Friday. He denies SI/HI's and AVH's. He denies depression, a poor appetite, and erratic sleep. He stated that he has decreased his alcohol consumption (etoh). Medications and Allergies Allergies Allergy/AdvReac Type Severity Reaction Status Date / Time No Known Allergies Allergy Verified 03/04/17 03:29 Home Medications Medication Instructions Recorded Confirmed Last Taken Type traMADol [Ultram] 50 mg PO BID 08/10/17 08/10/17 Unknown History Past psychiatric history - Past Medical History Past Medical History: No medical history Past Surgical History: Other (Right lung Biopsy) - past Psychiatric treatment and history psychiatric treatment history: Multiple rehab services. - Social History Social history: lives with family Mental Status Exam - Vital signs Last Vital Signs Temp 98.0 F 08/11/17 08:32 Pulse 79 08/11/17 08:32 Resp 20 08/11/17 08:32 BP 120/72 08/11/17 08:32 Pulse Ox 98 08/11/17 08:32 - Exam Narrative exam: MSE: Appearance: calm, cooperative Behavior: regular eye contact Speech: regular rate and tone Mood: "okay"" Affect: normal Thought Process: circumstantial Thought Content: denies SI/HI's and AVH's Motor Activity: ambulatory Cognition: A/O x 3 Insight: fair Judgment: variable Results Result Diagrams: 08/10/17 15:28 08/10/17 15:28 Abnormal lab results 08/10/17 08/10/17 08/10/17 Range/Units 15:28 15:28 15:28 RBC (3.65-5.03) M/mm3 Hgb (11.8-15.2) gm/dl Hct (35.5-45.6) % Lymph % (Auto) (13.4-35.0) % Seg Neutrophils % (40.0-70.0) % Seg Neutrophils # (1.8-7.7) K/mm3 Potassium 3.4 L (3.6-5.0) mmol/L Chloride 96.7 L (98-107) mmol/L Carbon Dioxide 21 L (22-30) mmol/L Glucose 136 H (75-100) mg/dL Total Creatine Kinase (55-170) units/L Salicylates < 0.3 L (2.8-20.0) mg/dL Acetaminophen < 5.0 L (10.0-30.0) ug/mL 08/10/17 08/10/17 Range/Units 15:28 15:28 RBC 5.17 H (3.65-5.03) M/mm3 Hgb 15.8 H (11.8-15.2) gm/dl Hct 46.0 H (35.5-45.6) % Lymph % (Auto) 12.1 L (13.4-35.0) % Seg Neutrophils % 82.7 H (40.0-70.0) % Seg Neutrophils # 8.4 H (1.8-7.7) K/mm3 Potassium (3.6-5.0) mmol/L Chloride (98-107) mmol/L Carbon Dioxide (22-30) mmol/L Glucose (75-100) mg/dL Total Creatine Kinase 258 H (55-170) units/L Salicylates (2.8-20.0) mg/dL Acetaminophen (10.0-30.0) ug/mL All other labs normal. Assessment and Plan Assessment and plan: Impression: Substance Use DO (amphetamines). Cannabis Use DO. Today the patient is calm and cooperative during the assessment. DDx: R/O Mood DO Recommendation/Plan: Continue 1013 and gather collateral for proper dispo and treatment.
[2017-08-12 09:30] VITALS: BP 102/55
--- NOTE | 2017-08-12 17:16 | Progress Note ---
Subjective - Reason for Consult Reason for consult: Meth abuse - Chief Complaint Chief complaint: Subjectively: Patient currently denies SI or HI. Patient denies urges to relapse on methamphetamines. Patient notes this is a off situation. Currently patient plans on going to [facility] in [facility]. General Appearance: casually dressed, no acute distress Sensorium/Consciousness: alert and responding to external stimuli; clear Orientation: person, place, time and situation Eye Contact: limited Attitude / Behavior: cooperative Psychomotor & Musculoskeletal Activity: WNL Mood: ok Affect: euthymic Speech / Language: fluent, with normal rate/rhythm/tone Thought Processes: organized, logical, linear Thought Content: no SI/HI Perception: no AVH Insight: fair Judgement: fair Capacity for ADLs: independent Plan: [id number] Refer to [facility] in [place], [place] Mental Status Exam - Vital signs Last Vital Signs Temp 97.5 F L 08/12/17 09:29 Pulse 75 08/12/17 09:29 Resp 18 08/12/17 09:29 BP 102/55 08/12/17 09:29 Pulse Ox 97 08/12/17 09:29
--- NOTE | 2017-08-12 19:21 | Emergency Department Report ---
Blank Doc - Documentation Documentation: The patient was reevaluated By psychiatrist. Psychiatry. The patient from psychiatric standpoint. The patient was reevaluated by myself. The patient reports resolution of hopelessness, severe sadness, and also harming himself or others for greater than 48 hours now. Medical records are reviewed and revealed that the patient was found to have a pulmonary nodule larger than previous x-ray obtained 5 months ago. The patient was informed of pulmonary nodule and growth in size, and need for outpatient follow-up imaging and biopsy to rule out malignancy. He expressed understanding and agreed. He is given a copy of his x-ray. The patient is stable for discharge with outpatient follow- up. The patient is given follow-up and return instructions. The patient expressed understanding and agreed with the plan. The patient is discharged in stable condition.
== END 2017-08-12 19:06 | disposition home or self-care (01) ==
LOC: ED 14:16 → EEVIPCON 14:16 → ED 08-12 19:06
DX: F15.10 Other stimulant abuse, uncomplicated (principal); F12.10 Cannabis abuse, uncomplicated; R07.9 Chest pain, unspecified; R06.02 Shortness of breath; F90.9 Attention-deficit hyperactivity disorder, unspecified type; F17.200 Nicotine dependence, unspecified, uncomplicated; Z79.899 Other long term (current) drug therapy
CPT/HCPCS: 36415; 71045; 80048; 80307; 81001; 82550; 82553; 84484; 85025; 93005; 93010; 96361; 96374; 99284; G0480; J2060; J7030; 80320; J7040

== ENCOUNTER 2017-09-29 10:47 | Emergency (ER) | payer SELFPAY ==
[2017-09-29 12:16] VITALS: BP 161/101
[2017-09-29 13:05] LABS: Bacteria,Urine 1+ /HPF (Negative); Bilirubin,Urine NEG (Negative); Blood,Urine NEG (Negative); Color,Urine Yellow (Yellow); Protein,Urine <15 mg/dL mg/dL (Negative); Urobilinogen,Urine < 2.0 mg/dL (<2.0)
[2017-09-29 13:11] LABS: WBC,Urine < 1.0 /HPF (0.0-6.0)
[2017-09-29 13:19] LABS: Alanine Aminotransferase 70 units/L (7-56); Albumin 4.9 g/dL (3.9-5); BUN/Creatinine Ratio 15; Blood Urea Nitrogen 12 mg/dL (9-20); Calcium 8.9 mg/dL (8.4-10.2); Hemolysis Index 15
[2017-09-29] MEDS ORDERED: ALUM-MAG HYDROX-SIMETH 200-200-20MG/5ML PO ONE (13:21)
[2017-09-29] MEDS ORDERED: BENTYL PO ONE (13:21)
[2017-09-29] MEDS ORDERED: LIDOCAINE VISCOUS 2% PO ONE (13:21)
--- NOTE | 2017-09-29 13:28 | Emergency Department Report ---
ED General Adult HPI - General Chief complaint: Abdominal Pain Stated complaint: ABDOMINAL PAIN Time Seen by Provider: 09/29/17 12:49 Source: patient Mode of arrival: Ambulatory Limitations: No Limitations - History of Present Illness Initial comments: 32-year-old man has multiple complaints, but presents primarily because he has had an episode of generalized abdominal discomfort, worse in the epigastrium, with 3 episodes of profuse watery diarrhea, and also complains of some dyspnea and his chest, with generalized anxiety about a known right lung mass, which he has not had follow-up appointment, as well as various skin lesions, both of a bite-like nature across his upper extremities, as well as a chronic atopic/ eczematous lesion in his left lower pretibial area. Abdominal discomfort and diarrhea began shortly after waking up this morning, having several donuts as well as a cup of coffee, and was generally tolerable, but he also had a breakfast at a local fast food retail outlet, with a chicken biscuit, and had a profuse diarrheal episode with significant persistent cramping in the epigastric area since that time. He has not had any further vomiting, has had no diarrhea in the emergency Department since. No hematochezia, no hematemesis, no melena. Bite-like lesions are demonstrated on extensor surfaces of both forearms, which she reports started approximately week ago, since she has been staying with grandmother, who has dogs, and he also noticed ants in his bed. No chronic scaling lesion on his left leg, this is been present for several months. Source is unknown. No prior treatments. Patient has had several emergency department visits here in the past, often with mental health issues, depression, as well as history of methamphetamine abuse. He is also a smoker, smoking approximately a pack of cigarettes daily. He denies other significant medical history. -: Sudden Time: 07:00 Location: abdomen Radiation: non-radiation Severity scale (0 -10): 6 Consistency: intermittent, colicky Improves with: none Worsens with: eating Associated Symptoms: other (diarrhea) Treatments Prior to Arrival: none - Related Data Previous Rx's Medication Instructions Recorded Last Taken Type Dicyclomine [Bentyl] 10 mg PO QID PRN #30 capsule 09/29/17 Unknown Rx Loperamide [Imodium A-D] 2 mg PO Q2HR PRN #15 udc 09/29/17 Unknown Rx Omeprazole 20 mg PO DAILY #30 tablet. 09/29/17 Unknown Rx Ondansetron [Zofran ODT TAB] 8 mg PO Q8HR PRN #10 tab.rapdis 09/29/17 Unknown Rx traMADol [Ultram 50 MG tab] 50 mg PO BID PRN #20 tablet 09/29/17 Unknown Rx Allergies Allergy/AdvReac Type Severity Reaction Status Date / Time No Known Allergies Allergy Verified 03/04/17 03:29 ED Review of Systems ROS: Stated complaint: ABDOMINAL PAIN Other details as noted in HPI Comment: All other systems reviewed and negative Constitutional: denies: chills, fever ENT: denies: ear pain, throat pain Respiratory: shortness of breath (generalized, vague, present several days, but worse today) Cardiovascular: denies: chest pain, palpitations Endocrine: no symptoms reported Gastrointestinal: abdominal pain, diarrhea. denies: hematemesis, melena, hematochezia Genitourinary: denies: urgency, dysuria Musculoskeletal: denies: back pain, joint swelling, arthralgia Skin: rash (left leg, bites on the upper extremities) Neurological: denies: headache, weakness, paresthesias Psychiatric: denies: anxiety, depression ED Past Medical Hx - Past Medical History Hx Congestive Heart Failure: No Hx Diabetes: No Hx Psychiatric Treatment: Yes (ADHD,drug abuse,alcohol) Hx Asthma: No Hx COPD: No Additional medical history: nodule on lung - Surgical History Hx Appendectomy: Yes Additional Surgical History: Right Lung biopsy - Social History Smoking Status: Current Every Day Smoker Substance Use Type: Alcohol - Medications Home Medications: Home Medications Medication Instructions Recorded Confirmed Last Taken Type Dicyclomine [Bentyl] 10 mg PO QID PRN #30 capsule 09/29/17 Unknown Rx Loperamide [Imodium A-D] 2 mg PO Q2HR PRN #15 udc 09/29/17 Unknown Rx Omeprazole 20 mg PO DAILY #30 tablet. 09/29/17 Unknown Rx Ondansetron [Zofran ODT TAB] 8 mg PO Q8HR PRN #10 tab.rapdis 09/29/17 Unknown Rx traMADol [Ultram 50 MG tab] 50 mg PO BID PRN #20 tablet 09/29/17 Unknown Rx ED Physical Exam - General Limitations: No Limitations General appearance: alert, in no apparent distress, anxious - Head Head exam: Present: atraumatic, normocephalic - Eye Eye exam: Present: PERRL, EOMI - ENT ENT exam: Present: mucous membranes moist - Neck Neck exam: Present: normal inspection. Absent: tenderness, meningismus, full ROM - Respiratory Respiratory exam: Present: normal lung sounds bilaterally. Absent: respiratory distress, wheezes, rales, rhonchi - Cardiovascular Cardiovascular Exam: Present: regular rate, normal heart sounds. Absent: systolic murmur - GI/Abdominal GI/Abdominal exam: Present: soft, tenderness (predominantly in epigastrium, but also generalized throughout her abdomen without localization elsewhere), hyperactive bowel sounds. Absent: guarding, rebound, rigid - Rectal Rectal exam: Present: deferred - Extremities Exam Extremities exam: Present: full ROM, normal capillary refill, other (atopic chronic scaling lesion, approximately 4 cm left distal leg, pretibial area). Absent: tenderness, pedal edema ED Course Vital Signs 09/29/17 12:12 Temperature 36.8 C Pulse Rate 98 H Respiratory 16 Rate Blood Pressure 161/101 O2 Sat by Pulse 100 Oximetry ED Medical Decision Making - Lab Data Result diagrams: 09/29/17 12:51 09/29/17 12:48 - Radiology Data Radiology results: report reviewed (chest x-ray is clear of lobar consolidation , right middle lobe lung mass again seen, measured at 2.8 cm, less than previous examination, but appears stable and with no signs of clear gross. Abdominal films are unremarkable, showing normal gas pattern, no signs of obstruction, no free air.) - Medical Decision Making This generally healthy 32-year-old gentleman presents with multiple complaints, but has an acute diarrheal episode with epigastric pain compatible with gastritis, and which was relieved with oral viscous lidocaine. He likely has an acute gastroenteritis, will be treated with antacids, and his gastrointestinal symptoms will be treated symptomatically with antiemetics, antispasmodics, and antidiarrheals. Patient is also somewhat fixated on the lung tumor, but has not had the means to have this evaluated, reporting that he currently has insurance, and his older activity using drugs, and believes that he can make and keep an appointment, and feels that he wants to have the tumor removed, even though he notes it's benign. Thoracic surgery consults are not available here due to lack of specialty services here, and patient will have to try to find his prior surgeon from [facility], or make his own search for an appropriate thoracic specialist. - Differential Diagnosis gastritis, gastroenteritis, diarrheal illness, anxiety reaction Critical Care Time: No Critical care attestation.: If time is entered above; I have spent that time in minutes in the direct care of this critically ill patient, excluding procedure time. 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 Fortunately, you already know that your tumor is benign, and you can safely seek a specialist appropriate and convenient for you. Prescriptions: Dicyclomine [Bentyl] 10 mg PO QID PRN #30 capsule PRN Reason: abdominal cramps Loperamide [Imodium A-D] 2 mg PO Q2HR PRN #15 udc PRN Reason: Diarrhea Omeprazole 20 mg PO DAILY #30 tablet. Ondansetron [Zofran ODT TAB] 8 mg PO Q8HR PRN #10 tab.rapdis PRN Reason: Nausea traMADol [Ultram 50 MG tab] 50 mg PO BID PRN #20 tablet PRN Reason: Pain Forms: Work/School Release Form(ED) Time of Disposition: 15:50
[2017-09-29 13:30] LABS: Basophils % (Auto) 0.5 % (0.0-1.8); Eosinophils # (Auto) 0.1 K/mm3 (0.0-0.4); Eosinophils % (Auto) 1.1 % (0.0-4.3); Hematocrit 44.9 % (35.5-45.6); Hemoglobin 15.4 gm/dl (11.8-15.2); Lymphocytes # (Auto) 1.5 K/mm3 (1.2-5.4); Lymphocytes % (Auto) 18.4 % (13.4-35.0); Mean Corpuscular HGB Conc 34 % (32-34); Mean Corpuscular Hemoglobin 31 pg (28-32); Mean Corpuscular Volume 90 fl (84-94); Monocytes # (Auto) 0.7 K/mm3 (0.0-0.8); Monocytes % (Auto) 8.4 % (0.0-7.3); Platelet Count 264 K/mm3 (140-440); Red Blood Count 5.01 M/mm3 (3.65-5.03); Red Cell Distribution Width 13.1 % (13.2-15.2)
--- NOTE | 2017-09-29 14:13 | XRay Report ---
ABDOMEN, 2 views: History: Abdominal pain, diarrhea. There is no evidence of free air beneath the diaphragms. The gas pattern within the abdomen is unremarkable. There is no evidence of bowel dilatation, significant air-fluid levels, or pathologic calcifications. Organ shadows are unremarkable. IMPRESSION: Unremarkable abdomen.
--- NOTE | 2017-09-29 14:13 | XRay Report ---
ROUTINE CHEST, TWO VIEWS: HISTORY: Dyspnea, right lung mass. The approximate 2.8 cm well-circumscribed right middle lobe mass is unchanged since 08/10/17. The remainder of the lungs are clear. No pleural effusion or pneumothorax. Normal heart and mediastinal structures. Normal bony thorax. IMPRESSION: No change in the right middle lobe mass since 08/10/17. No acute process.
== END 2017-09-29 16:30 | disposition home or self-care (01) ==
LOC: ED 10:47
DX: K29.00 Acute gastritis without bleeding (principal); K52.9 Noninfective gastroenteritis and colitis, unspecified; R21 Rash and other nonspecific skin eruption; D14.31 Benign neoplasm of right bronchus and lung; F90.9 Attention-deficit hyperactivity disorder, unspecified type; F19.10 Other psychoactive substance abuse, uncomplicated; F17.200 Nicotine dependence, unspecified, uncomplicated; Z90.49 Acquired absence of other specified parts of digestive tract
CPT/HCPCS: 36415; 71046; 74019; 80053; 81001; 83690; 85025; 99284

== ENCOUNTER 2018-01-19 04:43 | Emergency (ER) | payer SELFPAY ==
[2018-01-19 05:39] LABS: Basophils # (Auto) 0.1 K/mm3 (0.0-0.1); Basophils % (Auto) 0.6 % (0.0-1.8); Eosinophils % (Auto) 0.1 % (0.0-4.3); Hematocrit 45.5 % (35.5-45.6); Hemoglobin 15.3 gm/dl (11.8-15.2); Lymphocytes # (Auto) 0.9 K/mm3 (1.2-5.4); Lymphocytes % (Auto) 9.8 % (13.4-35.0); Mean Corpuscular HGB Conc 34 % (32-34); Mean Corpuscular Hemoglobin 31 pg (28-32); Mean Corpuscular Volume 91 fl (84-94); Monocytes # (Auto) 0.8 K/mm3 (0.0-0.8); Monocytes % (Auto) 8.7 % (0.0-7.3); Platelet Count 251 K/mm3 (140-440)
[2018-01-19 05:52] LABS: BUN/Creatinine Ratio 10; Blood Urea Nitrogen 11 mg/dL (9-20); Hemolysis Index 3
[2018-01-19 06:25] VITALS: BP 157/80
[2018-01-19] MEDS ORDERED: TYLENOL PO ONE (06:41)
--- NOTE | 2018-01-19 06:42 | Emergency Department Report ---
ED Chest Pain HPI - General Chief Complaint: Chest Pain Stated Complaint: CHEST PAIN Time Seen by Provider: 01/19/18 06:11 Source: patient, EMS, old records reviewed (patient admitted here May 2017 for slightly elevated troponin and substance abuse. Stress test negative) Mode of arrival: Stretcher Limitations: No Limitations - History of Present Illness Initial Comments: 32 yo male with a past medical polysubstance abuse including methamphetamines presents to the hospital with complaints of chest pain and shortness of breath. Symptoms started after using meth, tobacco, xanax, and alcohol. Patient states he has stressed by the relationship with his . He initially complains of chest pain and shortness of breath rated at 4/10 in intensity but symptoms have since resolved. Patient states is from [facility]. At the bedside he does appear to be anxious and constantly talking about his marital problems and denies any physical complaints. He denies suicidal homicidal. He wants to leave. His mother at the bedside feels comfortable taking him home. Severity scale (0 -10): 5 - Related Data Previous Rx's Medication Instructions Recorded Last Taken Type Dicyclomine [Bentyl] 10 mg PO QID PRN #30 capsule 09/29/17 Unknown Rx Loperamide [Imodium A-D] 2 mg PO Q2HR PRN #15 udc 09/29/17 Unknown Rx Omeprazole 20 mg PO DAILY #30 tablet. 09/29/17 Unknown Rx Ondansetron [Zofran ODT TAB] 8 mg PO Q8HR PRN #10 tab.rapdis 09/29/17 Unknown Rx traMADol [Ultram 50 MG tab] 50 mg PO BID PRN #20 tablet 09/29/17 Unknown Rx Allergies Allergy/AdvReac Type Severity Reaction Status Date / Time No Known Allergies Allergy Verified 03/04/17 03:29 Heart Score - HEART Score History: Slightly suspicious EKG: Normal Age: < 45 Risk factors: 1-2 risk factors Troponin: < normal limit HEART Score: 1 ED Review of Systems ROS: Stated complaint: CHEST PAIN Other details as noted in HPI Comment: All other systems reviewed and negative ED Past Medical Hx - Past Medical History Previous Medical History?: Yes Hx Congestive Heart Failure: No Hx Diabetes: No Hx Psychiatric Treatment: Yes (ADHD,drug abuse,alcohol) Hx Asthma: No Hx COPD: No Additional medical history: nodule on lung - Surgical History Past Surgical History?: Yes Hx Appendectomy: Yes Additional Surgical History: Right Lung biopsy - Social History Smoking Status: Current Every Day Smoker Substance Use Type: Alcohol, Prescribed, Methamphetamines - Medications Home Medications: Home Medications Medication Instructions Recorded Confirmed Last Taken Type Dicyclomine [Bentyl] 10 mg PO QID PRN #30 capsule 09/29/17 Unknown Rx Loperamide [Imodium A-D] 2 mg PO Q2HR PRN #15 udc 09/29/17 Unknown Rx Omeprazole 20 mg PO DAILY #30 tablet.dr 09/29/17 Unknown Rx Ondansetron [Zofran ODT TAB] 8 mg PO Q8HR PRN #10 tab.rapdis 09/29/17 Unknown Rx traMADol [Ultram 50 MG tab] 50 mg PO BID PRN #20 tablet 09/29/17 Unknown Rx ED Physical Exam - General Limitations: No Limitations - Other Other exam information: General: No limitations, patient is alert in no acute distress Head exam: Atraumatic, normocephalic Eyes exam: Normal appearance, pupils equal reactive to light, extraocular movements intact ENT: Moist mucous membrane, normal oropharynx Neck exam: Normal inspection, full range of motion, no meningismus nontender Respiratory exam: Clear to auscultation bilateral, no wheezes, rales, crackles Cardiovascular: Regular rate and rhythm Abdomen: Soft, nondistended, and nontender, with normal bowel sounds, no rebound, or guarding Extremity: Full range of motion normal inspection no deformity Back: Normal Inspection, full range of motion, no tenderness Neurologic: Alert, oriented x3, cranial nerves intact, no motor or sensory deficit Psychiatric: Anxious Skin: Warm, dry, intact ED Course Vital Signs 01/19/18 01/19/18 01/19/18 05:05 05:11 05:15 Temperature 98.7 F Pulse Rate 106 H 84 Respiratory 17 24 Rate Blood Pressure 174/103 153/109 165/100 O2 Sat by Pulse 99 99 99 Oximetry 01/19/18 01/19/18 01/19/18 05:31 05:53 06:01 Temperature Pulse Rate 100 H 101 H Respiratory 20 18 19 Rate Blood Pressure 177/91 157/80 O2 Sat by Pulse 97 97 98 Oximetry ROSA score - Rosa Score Age > 65: (0) No Aspirin use within the Past 7 Days: (0) No 3 or more CAD Risk Factors: (0) No 2 or more Angina events in past 24 hrs: (0) No Known CAD with more than 50% Stenosis: (0) No Elevated Cardiac Markers: (0) No ST Deviation Greater than 0.5mm: (0) No ROSA Score: 0 ED Medical Decision Making - Lab Data Result diagrams: 01/19/18 05:24 01/19/18 05:24 Lab Results 01/19/18 01/19/18 Range/Units 05:24 05:24 WBC 9.1 (4.5-11.0) K/mm3 RBC 5.00 (3.65-5.03) M/mm3 Hgb 15.3 H (11.8-15.2) gm/dl Hct 45.5 (35.5-45.6) % MCV 91 (84-94) fl MCH 31 (28-32) pg MCHC 34 (32-34) % RDW 13.0 L (13.2-15.2) % Plt Count 251 (140-440) K/mm3 Lymph % (Auto) 9.8 L (13.4-35.0) % Carlton % (Auto) 8.7 H (0.0-7.3) % Eos % (Auto) 0.1 (0.0-4.3) % Baso % (Auto) 0.6 (0.0-1.8) % Lymph # 0.9 L (1.2-5.4) K/mm3 Carlton # 0.8 (0.0-0.8) K/mm3 Eos # 0.0 (0.0-0.4) K/mm3 Baso # 0.1 (0.0-0.1) K/mm3 Seg Neutrophils % 80.8 H (40.0-70.0) % Seg Neutrophils # 7.3 (1.8-7.7) K/mm3 Sodium 141 (137-145) mmol/L Potassium 3.5 L (3.6-5.0) mmol/L Chloride 99.8 (98-107) mmol/L Carbon Dioxide 24 (22-30) mmol/L Anion Gap 21 mmol/L BUN 11 (9-20) mg/dL Creatinine 1.1 (0.8-1.5) mg/dL Estimated GFR > 60 ml/min BUN/Creatinine Ratio 10 % Glucose 157 H (75-100) mg/dL Calcium 10.0 (8.4-10.2) mg/dL Troponin T < 0.010 (0.00-0.029) ng/mL - EKG Data -: EKG Interpreted by Me EKG shows normal: sinus rhythm, axis (qrs 75), QRS complexes (qrsd 96), ST-T waves (no stemi) Rate: normal Critical Care Time: No Critical care attestation.: If time is entered above; I have spent that time in minutes in the direct care of this critically ill patient, excluding procedure time. ED Disposition Clinical Impression: Amphetamine abuse, Chest pain, Benzodiazepine abuse Disposition: TO HOME OR SELFCARE Is pt being admited?: No Condition: Stable Instructions: Chest Pain (ED), Methamphetamine Abuse (ED), Benzodiazepine Abuse (ED) Additional Instructions: Follow up with your doctor or the resources provided. Return if symptoms worsen as indicated by your discharge instructions Referrals: PRIMARY CARE, [Primary Care Provider] - 3-5 Days [facility] [Outside] - 3-5 Days (Mental health facility for help with substance abuse.) [facility] [Provider Group] - 3-5 Days (Primary care clinic) Time of Disposition: 06:51
[2018-01-19 08:30] LABS: Cocaine Screen,Urine PRESUMPTIVE NEGATIVE; Methadone Screen,Urine PRESUMPTIVE NEGATIVE; Opiate Screen,Urine PRESUMPTIVE NEGATIVE
[2018-01-19 08:44] LABS: Amphetamine Screen,Urine PRESUMPTIVE POSITIVE; Benzodiazepines Screen,Urine PRESUMPTIVE POSITIVE; Cannabinoid Screen,Urine PRESUMPTIVE POSITIVE
== END 2018-01-19 06:59 | disposition home or self-care (01) ==
LOC: ED 04:43
DX: R07.89 Other chest pain (principal); F15.10 Other stimulant abuse, uncomplicated; F13.20 Sedative, hypnotic or anxiolytic dependence, uncomplicated; F90.9 Attention-deficit hyperactivity disorder, unspecified type; F17.200 Nicotine dependence, unspecified, uncomplicated; Z90.89 Acquired absence of other organs; Z79.899 Other long term (current) drug therapy
CPT/HCPCS: 36415; 80048; 80307; 84484; 85025; 93005; 93010; 99284

== ENCOUNTER 2018-01-20 17:27 | Emergency (ER) | payer SELFPAY ==
[2018-01-20] MEDS ORDERED: NACL 0.9% 1000 ML 1,000 ML IV ONE (18:04)
[2018-01-20] MEDS ORDERED: ATIVAN IV ONE ×2 (18:31→18:44)
[2018-01-20] MEDS ORDERED: HALDOL IM PRN (18:44)
--- NOTE | 2018-01-20 18:44 | Emergency Department Report ---
HPI - General Chief Complaint: Overdose Time Seen by Provider: 01/20/18 18:26 - HPI HPI: Pack 26 The patient is a 32-year-old male presenting with a chief complaint of methamphetamine abuse. The patient admits to using methamphetamines and reports insomnia for 3 days. Patient is extremely anxious and states he feels as though people are following him. Patient states his family member gave him a Xanax to calm him down but it has not helped. Patient denies suicidal ideation. Patient very agitated during interview limiting history Location: Mental state Duration: Unknown Quality: Anxious Severity: Severe Modifying factors: [see above] Context: [see above] Mode of transportation: [not driving] ED Past Medical Hx - Past Medical History Hx Psychiatric Treatment: Yes (ADHD,drug abuse,alcohol) Additional medical history: nodule on lung - Surgical History Hx Appendectomy: Yes Additional Surgical History: Right Lung biopsy - Family History Family history: no significant - Social History Smoking Status: Current Every Day Smoker Substance Use Type: Methamphetamines - Medications Home Medications: Home Medications Medication Instructions Recorded Confirmed Last Taken Type No Known Home Medications [No 01/20/18 01/20/18 Unknown History Reported Home Medications] ED Review of Systems ROS: Stated complaint: MENTAL EVAL Other details as noted in HPI Comment: Unobtainable due to pts medical conditions Physical Exam - Physical Exam Vital Signs: Vital Signs 01/20/18 17:58 Temperature 99.1 F Pulse Rate 147 H Respiratory 20 Rate Blood Pressure 158/101 O2 Sat by Pulse 99 Oximetry Physical Exam: GENERAL: The patient is well-developed well-nourished male sitting on stretcher appearing very anxious and under the influence of methamphetamines. [] HEENT: Normocephalic. Atraumatic. Extraocular motions are intact. Patient has moist mucous membranes. NECK: Supple. Trachea midline CHEST/LUNGS: Tachypnea HEART/CARDIOVASCULAR: Regular. There is tachycardia. There is no gallop rub or murmur. ABDOMEN: Abdomen is soft, nontender. Patient has normal bowel sounds. There is no abdominal distention. SKIN: There is no rash. There is no edema. There is no diaphoresis. NEURO: The patient is awake and alert. The patient appears agitated but answers questions also the time when asked. The patient has no focal neurologic deficits. The patient has pressured speech but a normal gait gait. MUSCULOSKELETAL: There is no evidence of acute injury. ED Course Vital Signs 01/20/18 17:58 Temperature 99.1 F Pulse Rate 147 H Respiratory 20 Rate Blood Pressure 158/101 O2 Sat by Pulse 99 Oximetry - Reevaluation(s) Reevaluation #1: 01/21/18 01:01 Patient much improved at this time. Patient states he feels better. Patient informed of referrals for outpatient detox. Patient states he will call someone to take him home from the ED ED Medical Decision Making - Lab Data Result diagrams: 01/20/18 19:16 01/20/18 19:16 Laboratory Tests 01/20/18 01/20/18 01/20/18 19:16 19:16 19:16 WBC 12.2 H RBC 4.84 Hgb 14.7 Hct 43.3 MCV 90 MCH 30 MCHC 34 RDW 13.5 Plt Count 262 Add Manual Diff Complete Total Counted 100 Seg Neuts % (Manual) 77.0 H Band Neutrophils % 0 Lymphocytes % (Manual) 12.0 L Reactive Lymphs % (Man) 2.0 Monocytes % (Manual) 9.0 H Eosinophils % (Manual) 0 Basophils % (Manual) 0 Metamyelocytes % 0 Myelocytes % 0 Promyelocytes % 0 Blast Cells % 0 Nucleated RBC % Not Reportable Seg Neutrophils # Man 9.4 H Band Neutrophils # 0.0 Lymphocytes # (Manual) 1.5 Abs React Lymphs (Man) 0.2 Monocytes # (Manual) 1.1 H Eosinophils # (Manual) 0.0 Basophils # (Manual) 0.0 Metamyelocytes # 0.0 Myelocytes # 0.0 Promyelocytes # 0.0 Blast Cells # 0.0 WBC Morphology Not Reportable Hypersegmented Neuts Not Reportable Hyposegmented Neuts Not Reportable Hypogranular Neuts Not Reportable Smudge Cells Not Reportable Toxic Granulation Not Reportable Toxic Vacuolation Not Reportable Dohle Bodies Not Reportable Pelger-Huet Anomaly Not Reportable Mamadou Rods Not Reportable Platelet Estimate Consistent w auto Clumped Platelets Not Reportable Plt Clumps, EDTA Not Reportable Large Platelets Not Reportable Giant Platelets Not Reportable Platelet Satelliting Not Reportable Plt Morphology Comment Not Reportable RBC Morphology Normal Dimorphic RBCs Not Reportable Polychromasia Not Reportable Hypochromasia Not Reportable Poikilocytosis Not Reportable Anisocytosis Not Reportable Microcytosis Not Reportable Macrocytosis Not Reportable Spherocytes Not Reportable Pappenheimer Bodies Not Reportable Sickle Cells Not Reportable Target Cells Not Reportable Tear Drop Cells Not Reportable Ovalocytes Not Reportable Helmet Cells Not Reportable [place] Bodies Not Reportable [place] Rings Not Reportable [place] Cells Not Reportable Bite Cells Not Reportable Crenated Cell Not Reportable Elliptocytes Not Reportable Acanthocytes (Spur) Not Reportable Rouleaux Not Reportable Hemoglobin C Crystals Not Reportable Schistocytes Not Reportable Malaria parasites Not Reportable Joni Bodies Not Reportable Hem Pathologist Commnt No Sodium 137 Potassium 3.2 L Chloride 102.3 Carbon Dioxide 18 L Anion Gap 20 BUN 17 Creatinine 1.0 Estimated GFR > 60 BUN/Creatinine Ratio 17 Glucose 134 H Calcium 10.3 H Total Bilirubin 1.30 H AST 31 ALT 34 Alkaline Phosphatase 76 Total Creatine Kinase 241 H CK-MB (CK-2) 2.0 CK-MB (CK-2) Rel Index 0.8 Troponin T < 0.010 Total Protein 7.8 Albumin 4.8 Albumin/Globulin Ratio 1.6 TSH Free T4 Salicylates Acetaminophen 01/20/18 01/20/18 01/20/18 19:16 19:16 19:16 WBC RBC Hgb Hct MCV MCH MCHC RDW Plt Count Add Manual Diff Total Counted Seg Neuts % (Manual) Band Neutrophils % Lymphocytes % (Manual) Reactive Lymphs % (Man) Monocytes % (Manual) Eosinophils % (Manual) Basophils % (Manual) Metamyelocytes % Myelocytes % Promyelocytes % Blast Cells % Nucleated RBC % Seg Neutrophils # Man Band Neutrophils # Lymphocytes # (Manual) Abs React Lymphs (Man) Monocytes # (Manual) Eosinophils # (Manual) Basophils # (Manual) Metamyelocytes # Myelocytes # Promyelocytes # Blast Cells # WBC Morphology Hypersegmented Neuts Hyposegmented Neuts Hypogranular Neuts Smudge Cells Toxic Granulation Toxic Vacuolation Dohle Bodies Pelger-Huet Anomaly Mamadou Rods Platelet Estimate Clumped Platelets Plt Clumps, EDTA Large Platelets Giant Platelets Platelet Satelliting Plt Morphology Comment RBC Morphology Dimorphic RBCs Polychromasia Hypochromasia Poikilocytosis Anisocytosis Microcytosis Macrocytosis Spherocytes Pappenheimer Bodies Sickle Cells Target Cells Tear Drop Cells Ovalocytes Helmet Cells [place] Bodies [place] Rings [place] Cells Bite Cells Crenated Cell Elliptocytes Acanthocytes (Spur) Rouleaux Hemoglobin C Crystals Schistocytes Malaria parasites Joni Bodies Hem Pathologist Commnt Sodium Potassium Chloride Carbon Dioxide Anion Gap BUN Creatinine Estimated GFR BUN/Creatinine Ratio Glucose Calcium Total Bilirubin AST ALT Alkaline Phosphatase Total Creatine Kinase CK-MB (CK-2) CK-MB (CK-2) Rel Index Troponin T Total Protein Albumin Albumin/Globulin Ratio TSH 1.940 Free T4 1.59 H Salicylates < 0.3 L Acetaminophen < 5.0 L - EKG Data -: EKG Interpreted by Me EKG shows normal: sinus rhythm Rate: tachycardia (110 bpm) - EKG Data When compared to previous EKG there are: no significant change Interpretation: unchanged when compared t (01/19/2018) - Differential Diagnosis amphetamine abuse Critical care attestation.: If time is entered above; I have spent that time in minutes in the direct care of this critically ill patient, excluding procedure time. ED Disposition Clinical Impression: Amphetamine abuse Disposition: DC-01 TO HOME OR SELFCARE Is pt being admited?: No Does the pt Need Aspirin: No Condition: Stable Instructions: Methamphetamine Abuse (ED) Additional Instructions: Return to the emergency department immediately should you develop worsening symptoms, fever, inability to tolerate food or liquid or any other concerns. Referrals: PRIMARY CARE, [Primary Care Provider] - 3-5 Days [facility] [Outside] - 3-5 Days Time of Disposition: 01:04 (d/c to family)
[2018-01-20] MEDS ORDERED: HALDOL ONE (18:48)
[2018-01-20 19:25] LABS: Hematocrit 43.3 % (35.5-45.6); Hemoglobin 14.7 gm/dl (11.8-15.2); Mean Corpuscular HGB Conc 34 % (32-34); Mean Corpuscular Hemoglobin 30 pg (28-32); Mean Corpuscular Volume 90 fl (84-94); Platelet Count 262 K/mm3 (140-440); Red Blood Count 4.84 M/mm3 (3.65-5.03); Red Cell Distribution Width 13.5 % (13.2-15.2)
[2018-01-20 19:44] LABS: Alanine Aminotransferase 34 units/L (7-56); Albumin 4.8 g/dL (3.9-5); BUN/Creatinine Ratio 17; Blood Urea Nitrogen 17 mg/dL (9-20); Calcium 10.3 mg/dL (8.4-10.2); Hemolysis Index 8
[2018-01-20 19:50] LABS: Free T4 (Free Thyroxine) 1.59 ng/dL (0.76-1.46)
[2018-01-20 20:18] LABS: Basophils % (Manual) 0 % (0.0-1.8); Eosinophils % (Manual) 0 % (0.0-4.3); Total Cells Counted 100
[2018-01-20 20:19] LABS: Platelet Estimate Consistent w Auto; RBC Morphology Normal
[2018-01-21 00:41] VITALS: BP 102/71
[2018-01-21] MEDS ORDERED: NACL 0.9% 1000 ML 1,000 ML ONE (00:46)
[2018-01-21] MEDS ORDERED: NACL 0.9% 1000 ML 1,000 ML IV ONE (00:49)
[2018-01-21] MEDS ORDERED: K-DUR PO ONE (01:02)
== END 2018-01-21 01:37 | disposition home or self-care (01) ==
LOC: ED 17:27
DX: F15.10 Other stimulant abuse, uncomplicated (principal); G47.00 Insomnia, unspecified; F41.9 Anxiety disorder, unspecified; F90.9 Attention-deficit hyperactivity disorder, unspecified type; F17.200 Nicotine dependence, unspecified, uncomplicated; F10.10 Alcohol abuse, uncomplicated; Z79.899 Other long term (current) drug therapy
CPT/HCPCS: 36415; 80053; 82550; 82553; 84439; 84443; 84484; 85007; 85025; 93005; 93010; 96372; 96374; 99284; G0480; J1630; J2060; J7030; 80320

== ENCOUNTER 2019-12-08 16:58 | Emergency (ER) | payer SELFPAY ==
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
[2019-12-08 19:30] VITALS: BP 119/85
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
== END 2019-12-08 22:38 | disposition home or self-care (01) ==
LOC: ED 16:58
DX: S93.409A Sprain of unspecified ligament of unspecified ankle, initial encounter (principal); S93.609A Unspecified sprain of unspecified foot, initial encounter; S20.219A Contusion of unspecified front wall of thorax, initial encounter; R07.81 Pleurodynia; R07.9 Chest pain, unspecified; M25.572 Pain in left ankle and joints of left foot; F90.9 Attention-deficit hyperactivity disorder, unspecified type; Z90.49 Acquired absence of other specified parts of digestive tract; Z79.899 Other long term (current) drug therapy; Z98.890 Other specified postprocedural states; V49.49XA Driver injured in collision with other motor vehicles in traffic accident, initial encounter; Y92.410 Unspecified street and highway as the place of occurrence of the external cause; Y93.89 Activity, other specified; Y99.8 Other external cause status
CPT/HCPCS: 71111; 99283

== ENCOUNTER 2020-01-27 13:54 | Emergency (ER) | payer SELFPAY ==
[2020-01-27] MEDS ORDERED: SODIUM CHLORIDE 0.9% 1000 ML 2,000 ML IV ONE (14:24)
[2020-01-27] MEDS ORDERED: levETIRAcetam 1000 MG/NS 0.75% 1,000 MG/100 ML BAG IV ONE (14:24)
--- NOTE | 2020-01-27 14:25 | Emergency Department Report ---
<KRISTINA UP - Last Filed: 01/27/20 18:31> ED General Adult HPI - General Chief complaint: Seizure Stated complaint: SEIZURE Time Seen by Provider: 01/27/20 14:05 - Related Data Previous Rx's Medication Instructions Recorded Last Taken Type Ibuprofen [Motrin 800 MG tab] 800 mg PO Q8HR PRN #24 tablet 12/08/19 Unknown Rx Ondansetron [Zofran Odt] 4 mg PO Q8HR PRN #20 tab.rapdis 01/27/20 Unknown Rx cloNIDine [Catapres] 0.1 mg PO BID PRN #15 tablet 01/27/20 Unknown Rx levETIRAcetam [Keppra TAB] 500 mg PO BID #60 tablet 01/27/20 Unknown Rx Allergies Allergy/AdvReac Type Severity Reaction Status Date / Time No Known Allergies Allergy Verified 03/04/17 03:29 ED Past Medical Hx - Medications Home Medications: Home Medications Medication Instructions Recorded Confirmed Last Taken Type Ibuprofen [Motrin 800 MG tab] 800 mg PO Q8HR PRN #24 tablet 12/08/19 Unknown Rx Ondansetron [Zofran Odt] 4 mg PO Q8HR PRN #20 tab.rapdis 01/27/20 Unknown Rx cloNIDine [Catapres] 0.1 mg PO BID PRN #15 tablet 01/27/20 Unknown Rx levETIRAcetam [Keppra TAB] 500 mg PO BID #60 tablet 01/27/20 Unknown Rx ED Course - Reevaluation(s) Reevaluation #4: 01/27/20 18:31 pt has not had any further seizure activity since sign out observation period. Total ED stay over 4.5 hours. He was discharged with the meds provided by Dr Ford. ED Medical Decision Making - Lab Data Result diagrams: 01/27/20 15:30 01/27/20 15:30 ED Disposition Clinical Impression: History of seizure, Left hand pain Closed head injury Qualifiers: Encounter type: initial encounter Qualified Code(s): S09.90XA - Unspecified injury of head, initial encounter Disposition: DC- TO HOME OR SELFCARE Condition: Stable Additional Instructions: We recommend that the patient discontinue utilization of kratom supplement. Kratom supplements may lead to breakthrough seizures, which in turn can cause , disability, paralysis, permanent loss of quality of life. However, this supplement can cause physical dependency, and addiction, and therefore, we recommend that the patient gradually taper/discontinue consumption over the next week to 2 weeks. Patient may develop symptoms of withdrawal while discontinuing this medication/supplement, symptoms of withdrawal may include nausea, vomiting, diarrhea, cramping, and sensation of restlessness. Patient may take the prescribed Zofran medication as needed for nausea, and clonidine medication as needed for nausea, vomiting, diarrhea, weakness and agitation. Recommend that patient follow-up with an outpatient narcotic detox program for evaluation/initiation of Suboxone therapy, which may assist with symptoms of narcotic withdrawal, if patient elects to discontinue kratom supplement Rest, avoid heavy lifting, and avoid strenuous physical activities. Patient may take [id number] ibuprofen, alternate with vxhf-egy-[id number] acetaminophen, as needed for pain. Recommend that patient not drive, operate motor vehicles or heavy machinery until cleared to do so by a primary care doctor or neurologist. Recommend that patient follow-up with a primary care doctor or neurologist within the next 7 to 10 days. Take the Keppra medication as directed. Please return to the emergency room right away with new pain, worsening pain, migration of pain, projectile vomiting, change in mental status, confusion, inability to tolerate liquid feeds, new, worsened or different symptoms not present on the initial emergency room evaluation. Prescriptions: cloNIDine [Catapres] 0.1 mg PO BID PRN #15 tablet PRN Reason: Vomiting levETIRAcetam [Keppra TAB] 500 mg PO BID #60 tablet Ondansetron [Zofran Odt] 4 mg PO Q8HR PRN #20 tab.rapdis PRN Reason: Nausea Referrals: LETY WHALEN MD [Staff Physician] - 3-5 Days THAIS GRANT MD [Referring] - 3-5 Days Forms: Work/School Release Form(ED) Time of Disposition: 18:32 <TACHO FORD - Last Filed: 01/29/20 07:44> ED General Adult HPI - General PUI?: No Source: patient, EMS ( EMS documentation not available at time of chart dictation ), RN notes reviewed, old records reviewed Mode of arrival: Stretcher Limitations: No Limitations - History of Present Illness Initial comments: The patient was evaluated in the emergency department for symptoms described in the history of present illness. He/she was evaluated in the context of the global COVID-19 pandemic, which necessitated consideration that the patient might be at risk for infection with the virus that causes COVID-19. Institutional protocols and algorithms that pertain to the evaluation of pat ients at risk for COVID-19 are in a state of rapid change based on information released by regulatory bodies including the CDC and federal and state organizations. These policies and algorithms were followed during the patient's care in the emergency department. Please note that these policies, procedures and recommendations changed on a rapid basis. Patient is a 35-year-old gentleman. He has been evaluated by myself in the past. He is left-hand dominant, and has a history of methamphetamine use/abuse. He also reports daily use of kratom supplement "to help me get started in the morning." He reports taking 2 spoonfuls each morning. He is not quite sure what time this morning he took this supplement. He is brought to the hospital by EMS with a complaint of seizure. Patient states that he was at work, doing heavy lifting, when he reportedly had a seizure. Prior to the event, the patient was not having any physical pain. He apparently had a generalized convulsive event, uncertain how long it lasted for, and he fell and hit his head. He also hit his left hand. He has right forehead pain and headache, and left medial hyperthenar pain. He denies midline neck pain, chest pain, abdominal pain, shortness of breath, urinary symptoms, homicidality, suicidality weakness/numbness. He is feeling mildly anxious. -: Sudden Location: head, left, upper extremity Severity scale (0 -10): 6 Quality: aching Consistency: constant Improves with: none Worsens with: none ED Review of Systems ROS: Stated complaint: SEIZURE Other details as noted in HPI Constitutional: denies: fever Eyes: denies: eye discharge, vision change ENT: denies: epistaxis Respiratory: denies: cough Cardiovascular: denies: chest pain Gastrointestinal: denies: abdominal pain Genitourinary: denies: dysuria Musculoskeletal: arthralgia, myalgia Neurological: headache. denies: numbness, paresthesias Psychiatric: anxiety. denies: homicidal thoughts, suicidal thoughts ED Past Medical Hx - Past Medical History Previous Medical History?: Yes Hx Congestive Heart Failure: No Hx Diabetes: No Hx Seizures: Yes (No meds) Hx Psychiatric Treatment: Yes (ADHD,drug abuse,alcohol) Hx Asthma: No Hx COPD: No Additional medical history: nodule on lung - Surgical History Past Surgical History?: Yes Hx Appendectomy: Yes Additional Surgical History: Right Lung biopsy - Social History Smoking Status: Never Smoker Substance Use Type: None ED Physical Exam - General Limitations: No Limitations General appearance: alert, in no apparent distress - Head Head exam: Present: normocephalic, other (There is a right forehead abrasion.) - Eye Eye exam: Present: normal appearance, PERRL, EOMI. Absent: nystagmus - ENT ENT exam: Present: normal exam, normal orophraynx, mucous membranes moist, normal external ear exam - Neck Neck exam: Present: normal inspection, full ROM. Absent: tenderness, meningismus - Respiratory Respiratory exam: Present: normal lung sounds bilaterally. Absent: respiratory distress, wheezes, rales, rhonchi, stridor, decreased breath sounds - Cardiovascular Cardiovascular Exam: Present: regular rate, normal rhythm, normal heart sounds. Absent: bradycardia, tachycardia, irregular rhythm, systolic murmur, diastolic murmur, rubs, gallop - GI/Abdominal GI/Abdominal exam: Present: soft. Absent: distended, tenderness, guarding, rebound, rigid, pulsatile mass - Rectal Rectal exam: Present: deferred - Extremities Exam Extremities exam: Present: normal inspection, full ROM, other (2+ pulses noted in the bilateral upper and lower extremities. There is no palpable cord. negative Homans sign. Muscular compartments are soft. The pelvis is stable.). Absent: pedal edema, calf tenderness - Back Exam Back exam: Present: normal inspection, full ROM. Absent: tenderness, CVA tenderness (R), CVA tenderness (L), paraspinal tenderness, vertebral tenderness - Neurological Exam Neurological exam: Present: alert, oriented X3, other (No facial droop. Tongue midline. Extraocular movements intact bilaterally. Facial sensation intact to light touch in V1, V2, V3 distribution bilaterally. 5 and a 5 strength in 4 e xtremities. Sensation intact to light touch in 4 extremities.) - Psychiatric Psychiatric exam: Present: anxious. Absent: homicidal ideation, suicidal ideation - Skin Skin exam: Present: warm, abrasion (Forehead abrasion) ED Course Vital Signs 01/27/20 01/27/20 01/27/20 14:15 14:18 14:30 Temperature 97.7 F Pulse Rate 82 87 82 Respiratory 19 16 13 Rate Blood Pressure 99/64 99/64 Blood Pressure 99/64 [Left] O2 Sat by Pulse 99 97 95 Oximetry 01/27/20 01/27/20 01/27/20 14:45 15:10 15:15 Temperature Pulse Rate 85 85 82 Respiratory 16 11 L 12 Rate Blood Pressure 123/79 123/79 130/81 Blood Pressure [Left] O2 Sat by Pulse 100 100 Oximetry 01/27/20 01/27/20 01/27/20 15:30 15:45 16:00 Temperature Pulse Rate 83 87 83 Respiratory 14 13 16 Rate Blood Pressure 130/81 126/79 129/79 Blood Pressure [Left] O2 Sat by Pulse 99 Oximetry 01/27/20 01/27/20 01/27/20 16:15 16:30 16:45 Temperature Pulse Rate 81 86 77 Respiratory 15 16 12 Rate Blood Pressure 126/80 125/86 135/84 Blood Pressure [Left] O2 Sat by Pulse 98 97 Oximetry 01/27/20 01/27/20 01/27/20 17:01 17:15 17:30 Temperature Pulse Rate 94 H 75 69 Respiratory 22 13 13 Rate Blood Pressure 135/84 135/84 114/76 Blood Pressure [Left] O2 Sat by Pulse 97 Oximetry 01/27/20 01/27/20 01/27/20 17:45 18:00 18:15 Temperature Pulse Rate 67 82 70 Respiratory 14 17 17 Rate Blood Pressure 114/76 124/76 124/76 Blood Pressure [Left] O2 Sat by Pulse 97 99 97 Oximetry 01/27/20 01/27/20 18:30 18:45 Temperature Pulse Rate 68 62 Respiratory 13 11 L Rate Blood Pressure 132/74 132/74 Blood Pressure [Left] O2 Sat by Pulse 100 98 Oximetry - Reevaluation(s) Reevaluation #1: 01/27/20 15:31 Differential diagnosis, including but not limited to: Closed head injury, concussion, intracranial injury, seizure, left hand sprain/strain, toxic effects of supplement Assessment and plan: 35-year-old gentleman, who is clinically sober with a GCS of 15, patient is clinically sober at this time. The cervical spine is cleared through nexus and [place] c spine rule who is currently using a kratom supplement, for recreational reasons, with recurrent breakthrough seizure, patient had similar presentation to this hospital August 2019. X-ray of the left hand/wrist shows no fracture or dislocation, there is no snuffbox tenderness, sensation is intact to light touch in the deltoid, median, radial, ulnar distribution. CT scan of the brain shows no acute intracranial findings. Patient will be given fluids, Keppra, and will also be given ketorolac for pain. Discussed with Mane at the [facility], we are awaiting call back for final recommendations. The meantime, we will place patient on a director of cardiopulmonary services, give IV fluids, observe. Patient protecting airway and moving 4 extremities at this point time Reevaluation #2: 01/27/20 15:58 Rediscussed with current of the [facility]. Kratom can indeed lower the seizure threshold, but can also cause physical dependency, and abrupt termination can cause withdrawal symptoms, similar to opioid withdrawal. Therefore, it is recommended that the patient gradually taper/discontinue his consumption of this medication, follow-up with an outpatient opioid program for opioid cessation/Suboxone initiation, we will discharge him with as needed clonidine, for withdrawal symptoms, as well as Reglan. We will also initiate Keppra therapy. Care will be transferred to the oncoming physician, , to follow-up on laboratory studies, and to complete a period of 4 hours of observation. Reevaluation #3: 01/27/20 16:05 Feels improved. Blood pressure in the 120s. No further seizures noted. Care will be transferred to the oncoming physician, Dr. Up, to follow-up on laboratory studies, and complete period of evaluation. Patient updated on plan of care and recommendations and verbalizes isis cunningham. ED Medical Decision Making - Lab Data Result diagrams: 01/27/20 15:30 01/27/20 15:30 Vital Signs 01/27/20 14:18 Temperature 97.7 F Pulse Rate 87 Respiratory 16 Rate Blood Pressure 99/64 [Left] O2 Sat by Pulse 97 Oximetry - EKG Data -: EKG Interpreted by [facility] EKG shows normal: sinus rhythm Rate: normal - EKG Data 01/27/20 15:18 Sinus rhythm, 80 bpm, first-degree AV block, QTC 446 ms, there is borderline high left ventricular voltage, the EKG is abnormal. The EKG is not a STEMI, EKG shows new onset first-degree AV block, which appears to be new when compared to prior EKG from January 2018 - Radiology Data Radiology results: report reviewed, image reviewed rint Report Referring Physician: TACHO FORD Patient Name: FERDINAND GRAY Date of : 1985 Sex: Male Report Date: 2020-01-27 Report Status: Finalized Findings [address] [address] XRay Report Signed Patient: FERDINAND GRAY MR#: [id number] : 1985 Acct:[id number] Age/Sex: 35 / M ADM Date: 01/27/20 Loc: ED At [facility] Dr: Ordering Physician: TACHO FORD MD Date of Service: 01/27/20 Procedure(s): XR hand 3+V LT Accession Number(s): [id number] cc: TACHO FORD MD Fluoro Time In Minutes: LEFT HAND 3 VIEWS INDICATION / CLINICAL INFORMATION: Left hand pain. COMPARISON: None available. FINDINGS: BONES / JOINT(S): There is a ring on the ring finger. A monitor overlies the tip of the index finger. The joint spaces are well-maintained. There is no evidence of fracture, subluxation or destructive lesion. SOFT TISSUES: No significant abnormality. ADDITIONAL FINDINGS: None. Signer Name: Romero Washington MD Signed: 01/27/2020 3:01 PM Workstation Name: [id number] Transcribed By: RT Dictated By: Romero Washington MD Electronically Authenticated By: Romero Washington MD Signed Date/Time: 01/27/20 1501 DD/ 1500 Print Report Referring Physician: TACHO FORD Patient Name: FERDINAND GRAY Date of : 1985 Sex: Male Report Date: 2020-01-27 Report Status: Finalized Findings [address] [address] XRay Report Signed Patient: FERDINAND GRAY MR#: [id number] : 1985 Acct:[id number] Age/Sex: 35 / M ADM Date: 01/27/20 Loc: ED Attendin g Dr: Ordering Physician: TACHO FORD MD Date of Service: 01/27/20 Procedure(s): XR wrist 3+V LT Accession Number(s): [id number] cc: TACHO FORD MD Fluoro Time In Minutes: XR wrist 3+V LT INDICATION / CLINICAL INFORMATION: left hadn pain. COMPARISON: None available. FINDINGS: No acute fracture. Normal alignment. Joint spaces are preserved. No destructive osseous lesion or suspicious periosteal reaction. Impression: 1.No acute fracture. Signer Name: Pierre Singletary MD Signed: 01/27/2020 3:01 PM Workstation Name: [id number] Transcribed By: CS Dictated By: Pierre Singletary MD Electronically Authenticated By: Pierre Singletary MD Signed Date/Time: 01/27/20 1501 DD/ 1500 TD/TT: Critical care attestation.: If time is entered above; I have spent that time in minutes in the direct care of this critically ill patient, excluding procedure time. ED Disposition Is pt being admited?: No Does the pt Need Aspirin: No
--- NOTE | 2020-01-27 15:06 | XRay Report ---
LEFT HAND 3 VIEWS INDICATION / CLINICAL INFORMATION: Left hand pain. COMPARISON: None available. FINDINGS: BONES / JOINT(S): There is a ring on the ring finger. A monitor overlies the tip of the index finger. The joint spaces are well-maintained. There is no evidence of fracture, subluxation or destructive l esion. SOFT TISSUES: No significant abnormality. ADDITIONAL FINDINGS: None. Signer Name: Romero Washington MD Signed: 01/27/2020 3:01 PM Workstation Name: [id number]
--- NOTE | 2020-01-27 15:06 | XRay Report ---
XR wrist 3+V LT INDICATION / CLINICAL INFORMATION: left hadn pain. COMPARISON: None available. FINDINGS: No acute fracture. Normal alignment. Joint spaces are preserved. No destructive osseous lesion or s uspicious periosteal reaction. Impression: 1.No acute fracture. Signer Name: Pierre Singletary MD Signed: 01/27/2020 3:01 PM Workstation Name: [id number]
--- NOTE | 2020-01-27 15:29 | Cat Scan Report ---
CT head/brain wo con INDICATION / CLINICAL INFORMATION: 35 years Male; sz closed head injury. TECHNIQUE: Routine CT head without contrast. All CT scans at this location are performed using CT dos e reduction for ALARA by means of automated exposure control. COMPARISON: The study is compared to the previous CT of 08/25/2019. FINDINGS: BRAIN / INTRACRANIAL CONTENTS: The brain appears to demonstrate appropriate attenuation without signi ficant interval change from the earlier CT. The ventricular system remains within normal limits in si ze and configuration. There appears be mild edema involving the right frontal scalp. However, there is no clear CT evidence of acute intracranial hemorrhage or significant mass effect. ORBITS: No significant abnormality of visualized orbits. SINUSES / MASTOIDS: There is continued is scattered opacification within the ethmoid air cells. There is moderate mucosal thickening along the visualized inferior right maxillary sinus. CRANIOCERVICAL JUNCTION: No significant abnormality. ADDITIONAL FINDINGS: None. IMPRESSION: 1. There is no CT ends of acute intracranial process. 2. There is sinus inflammatory disease as described. Signer Name: Jimy Olmstead MD Signed: 01/27/2020 3:24 PM Workstation Name: [id number]
[2020-01-27] MEDS ORDERED: KETOROLAC 30 MG/1 ML INJ IV ONE (15:30)
[2020-01-27] MEDS ORDERED: DIPHtheria,PERTUSSIS(ACELL),TETANUS VACCINE/PF 0.5 ML VIAL IM ONE (15:30)
[2020-01-27 15:45] LABS: Hematocrit 37.7 % (35.5-45.6); Hemoglobin 12.9 gm/dl (11.8-15.2)
[2020-01-27 16:06] LABS: BUN/Creatinine Ratio 18; Blood Urea Nitrogen 14 mg/dL (9-20); Calcium 8.8 mg/dL (8.4-10.2); Hemolysis Index 10
[2020-01-27] MEDS ORDERED: ACETAMINOPHEN 500 MG TAB PO ONE (16:13)
[2020-01-27 18:33] VITALS: BP 132/74
== END 2020-01-27 18:56 | disposition home or self-care (01) ==
LOC: ED 13:54
DX: S09.90XA Unspecified injury of head, initial encounter (principal); G40.909 Epilepsy, unspecified, not intractable, without status epilepticus; Z79.899 Other long term (current) drug therapy; M79.642 Pain in left hand
CPT/HCPCS: 36415; 70450; 73110; 73130; 80048; 82550; 83735; 85014; 85018; 85049; 90471; 90715; 93005; 96365; 96375; 99285; J1885; J1953; J7030; 80320; G0480

== ENCOUNTER 2021-11-06 17:34 | Emergency (ER) | payer SELFPAY ==
[2021-11-06 17:52] VITALS: BP 146/101
== END 2021-11-06 18:05 | disposition left against medical advice (07) ==
LOC: ED 17:34
DX: B33.8 Other specified viral diseases (principal); Z53.21 Procedure and treatment not carried out due to patient leaving prior to being seen by health care provider